=== PATIENT | male | born 1950 | race Caucasian/White ===

== ENCOUNTER 2017-11-11 19:46 | Observation (INO) | payer OTHER ==
[2017-11-11 20:53] LABS: Absolute Lymphocytes (CBC) 2.6 K/uL (0.7-4.9); Absolute Monocytes 0.7 K/uL (0.1-1.3); Absolute Neutrophil 4.9 K/uL (1.8-8.0); Basophils % 0.8 % (0-1.3); Eosinophils % 2.9 % (0-4.4); Lymphocytes % 30.4 % (15.3-44.8); MCH 30.9 pg (27.0-35.0); MCV 89.6 fL (80-100); MPV 8.3 fL (7.6-11.3); Monocytes % 8.2 % (3.3-12.3); RBC Red Blood Cell Count 4.46 M/uL (4.33-5.43)
[2017-11-11 20:58] LABS: Protime INR 1.07
[2017-11-11 21:08] LABS: Bilirubin Total 0.3 mg/dL (0.2-1.0); Potassium 3.9 mmol/L (3.5-5.1); Protein, Total 6.9 g/dL (6.4-8.2)
[2017-11-11] MEDS ORDERED: D50W 25 GM/50 ML SYRINGE IV PRN (21:16)
[2017-11-11] MEDS ORDERED: ONDANSETRON 4 MG/2 ML VIAL IV PRN (21:16)
[2017-11-11] MEDS ORDERED: ACETAMINOPHEN 500 MG TAB PO PRN (21:16)
[2017-11-11] MEDS ORDERED: GLUCAGON 1 MG/VIAL IM PRN (21:16)
[2017-11-11] MEDS ORDERED: Pharmacy Consult 1 EA IV PRN (21:16)
--- NOTE | 2017-11-11 21:23 | ER ---
Nurse's Notes [facility] Name: Grupo De La Rosa Age: 67 yrs Sex: Male : 1950 Arrival Date: 11/11/2017 Time: 19:49 Bed 24 Private MD: Noemi Tamayo F Diagnosis: Osteomyelitis-Right Foot Presentation: 11/11 19:52 Presenting complaint: Patient states: I have a diabetic foot wound and the MRI said its la1 gone to the bone the doctor told me I need to come in and get a picc line right away. Transition of care: patient was not received from another setting of care. Onset of symptoms was November 11, 2017. Risk Assessment: Do you want to hurt yourself or someone else? Patient reports no desire to harm self or others. Initial Sepsis Screen: Does the patient meet any 2 criteria? No. Patient's initial sepsis screen is negative. Does the patient have a suspected source of infection? Yes: Skin breakdown/wound. Care prior to arrival: None. 19:52 Method Of Arrival: Ambulatory la1 19:52 Acuity: TRIXIE 3 la1 Historical: - Allergies: 19:52 PENICILLINS; la1 19:52 Uqjtlfk-Ipg-Rcs Reductase Inhibitors; la1 - PMHx: 19:52 Diabetes - IDDM; CHF; la1 - PSHx: 19:[address]; Left BKA; Skin Grafts; la1 - Immunization history:: Adult Immunizations up to date. - Social history:: Smoking status: Patient/guardian denies using tobacco. - Ebola Screening: : No symptoms or risks identified at this time. Screenin:10 Abuse screen: Denies threats or abuse. Denies injuries from another. Nutritional mg2 screening: No deficits noted. Tuberculosis screening: No symptoms or risk factors identified. Fall Risk Ambulatory Aid- Crutches/Cane/Walker (15 pts). Assessment: 20:10 General: Appears in no apparent distress. comfortable, Behavior is calm, cooperative. mg2 Pain: Denies pain. Neuro: Level of Consciousness is awake, alert, obeys commands, Oriented to person, place, time, situation. Cardiovascular: Capillary refill < 3 seconds Patient's skin is warm and dry. Respiratory: Airway is patent Respiratory effort is even, unlabored, Respiratory pattern is regular, symmetrical. GI: No signs and/or symptoms were reported involving the gastrointestinal system. : No signs and/or symptoms were reported regarding the genitourinary system. EENT: No signs and/or symptoms were reported regarding the EENT system. Derm: Skin has lesions on right foot. Musculoskeletal: Circulation, motion, and sensation intact. 22:33 Reassessment: Patient appears in no apparent distress at this time. Patient and/or mg2 family updated on plan of care and expected duration. Pain level reassessed. Patient is alert, oriented x 3, equal unlabored respirations, skin warm/dry/pink. Vital Signs: 19:50 BP 150 / 70; Pulse 71; Resp 16; Temp 97.2; Pulse Ox 98% on R/A; Weight 103.42 kg; la1 Height 6 ft. 0 in. (182.88 cm); 20:23 Pulse 70; mg2 21:25 BP 118 / 58; Pulse 71; Resp 18; Pulse Ox 100% on R/A; mg2 19:50 Body Mass Index 30.92 (103.42 kg, 182.88 cm) la1 20:23 distal tibial pulse by doppler mg2 ED Course: 19:49 Patient arrived in ED. ds1 19:50 Noemi Tamayo MD is Private Physician. ds1 19:52 Arm band placed on left wrist. la1 19:53 Triage completed. la1 19:58 Bo Bender PA is PHCP. cp 19:58 Bhumika Logan MD is Attending Physician. cp 20:03 Dc Turner, ANJANA is Primary Nurse. mg2 20:12 Patient has correct armband on for positive identification. Call light in reach. Side mg2 rails up X 1. Door closed. 20:12 No provider procedures requiring assistance completed. mg2 21:22 Noemi Tamayo MD is Hospitalizing Provider. cp 21:30 Inserted saline lock: 20 gauge in right antecubital area, using aseptic technique. mg2 Blood collected. 22:33 Patient admitted, IV remains in place. mg2 Administered Medications: 21:45 Drug: Insulin Regular Human 7 units {Co-Signature: aa1 (Mariana Khalil RN).} Route: IVP; mg2 Site: right antecubital; 22:30 Follow up: Response: No adverse reaction mg2 21:47 Drug: LevaQUIN 750 mg Volume: 150 ml; Route: IVPB; Infused Over: 90 mins; Site: right mg2 antecubital; 22:30 Follow up: IV Status: Infusion continued upon transfer mg2 22:30 Not Given (to be given in the floor): vancoMYCIN 1 grams IVPB once over 2 hrs mg2 Point of Care Testing: Blood Glucose: 21:47 Blood Glucose: 257 mg/dL; mg2 Ranges: Outcome: 21:23 Decision to Hospitalize by Provider. cp 22:33 Admitted to Tele accompanied by tech, via wheelchair, room 428, with chart, Report mg2 called to RN Cecilia 22:33 Condition: stable 22:33 Instructed on the need for admit, Demonstrated understanding of instructions. 22:34 Patient left the ED. mg2 Signatures: Gudelia Blankenship ds1 Rene Amador RN RN la1 Bo Bender PA PA cp Dc Turner, RN RN mg2 Mariana Khalil RN aa1
--- NOTE | 2017-11-11 21:23 | EDPHYS ---
Physician Documentation [facility] Name: Grupo De La Rosa Age: 67 yrs Sex: Male : 1950 Arrival Date: 11/11/2017 Time: 19:49 Bed 24 Private MD: Noemi Tamayo F ED Physician Bhumika Logan HPI: 11/11 20:20 This 67 yrs old Male presents to ER via Ambulatory with complaints of Failed cp Outpatient Therapy. 20:20 The patient presents with chronic wound. cp Historical: - Allergies: 19:52 PENICILLINS; la1 19:52 Zuxrstb-Uue-Kit Reductase Inhibitors; la1 - PMHx: 19:52 Diabetes - IDDM; CHF; la1 - PSHx: 19:[address]; Left BKA; Skin Grafts; la1 - Immunization history:: Adult Immunizations up to date. - Social history:: Smoking status: Patient/guardian denies using tobacco. - Ebola Screening: : No symptoms or risks identified at this time. ROS: 20:30 Constitutional: Negative for body aches, chills, fever, poor PO intake. cp 20:30 Eyes: Negative for injury, pain, redness, and discharge. cp 20:30 ENT: Negative for drainage from ear(s), ear pain, sore throat, difficulty swallowing, difficulty handling secretions. 20:30 Cardiovascular: Negative for chest pain, edema, palpitations. 20:30 Respiratory: Negative for cough, shortness of breath, wheezing. 20:30 Abdomen/GI: Negative for abdominal pain, nausea, vomiting, and diarrhea, constipation, black/tarry stool, rectal bleeding. 20:30 Back: Negative for pain at rest, pain with movement. 20:30 MS/extremity: Positive for of the right foot, chronic wound. 20:30 Neuro: Negative for altered mental status, dizziness, headache, weakness. 20:30 All other systems are negative. Exam: 20:35 Constitutional: The patient appears in no acute distress, alert, awake, cp non-diaphoretic, non-toxic, well developed, well nourished. 20:35 Head/Face: Normocephalic, atraumatic. cp 20:35 Eyes: Periorbital structures: appear normal, Conjunctiva: normal, no exudate, no injection, Sclera: no appreciated abnormality, Lids and lashes: appear normal, bilaterally. 20:35 ENT: External ear(s): are unremarkable, Nose: is normal, Mouth: Lips: moist, Oral mucosa: pink and intact, moist, Posterior pharynx: is normal, airway is patent, no erythema, no exudate, Voice: is normal. 20:35 Neck: ROM/movement: is normal, is supple, without pain, no range of motions limitations, no nuchal rigidity. 20:35 Chest/axilla: Inspection: normal, Palpation: is normal, no crepitus, no tenderness. 20:35 Cardiovascular: Rate: normal, Rhythm: regular, Edema: is not appreciated. 20:35 Respiratory: the patient does not display signs of respiratory distress, Respirations: normal, no use of accessory muscles, no retractions, no splinting, no tachypnea, labored breathing, is not present, Breath sounds: are clear throughout, no decreased breath sounds, no stridor, no wheezing. 20:35 Abdomen/GI: Inspection: abdomen appears normal, Bowel sounds: active, all quadrants, Palpation: abdomen is soft and non-tender, in all quadrants, rebound tenderness, is not appreciated, involuntary guarding, is not appreciated. 20:35 Back: pain, is absent, ROM is normal. 20:35 Musculoskeletal/extremity: left BKA noted. 20:35 Skin: open wound noted lateral aspect right distal foot with purulent drainage, minimal erythema, minimal swelling. 20:42 ECG was reviewed by the Attending Physician. cp Vital Signs: 19:50 BP 150 / 70; Pulse 71; Resp 16; Temp 97.2; Pulse Ox 98% on R/A; Weight 103.42 kg; la1 Height 6 ft. 0 in. (182.88 cm); 20:23 Pulse 70; mg2 21:25 BP 118 / 58; Pulse 71; Resp 18; Pulse Ox 100% on R/A; mg2 19:50 Body Mass Index 30.92 (103.42 kg, 182.88 cm) la1 20:23 distal tibial pulse by doppler mg2 MDM: 19:59 Patient medically screened. cp 21:12 Data reviewed: vital signs, nurses notes, old medical records, lab test result(s), EKG, cp and as a result, I will admit patient. 21:12 Counseling: I had a detailed discussion with the patient and/or guardian regarding: the cp historical points, exam findings, and any diagnostic results supporting the discharge/admit diagnosis, lab results. Physician consultation: Noemi Tamayo MD was called at 21:00, was contacted at 21:00, regarding admission, to the medical/surgical unit. patient's condition. 11/11 20:18 Order name: CBC with Diff; Complete Time: 21:09 11/11 21:10 Interpretation: Reviewed. 11/11 20:18 Order name: CMP; Complete Time: 21: 11/11 21:10 Interpretation: Normal except: NA 135; GLUC 314; BUN 22; GFR 60; ALT 10; ALB 3.0. 11/11 20:18 Order name: PT-INR; Complete Time: 21: 11/11 20:18 Order name: Ptt, Activated; Complete Time: 21: 11/11 21:22 Order name: Basic Metabolic Panel EDMD 11/11 21:22 Order name: Basic Metabolic Panel EDMD 11/11 20:18 Order name: EKG; Complete Time: 20:19 11/11 21:22 Order name: Social Service Consult EDMD 11/11 21:22 Order name: CBC with Automated Diff EDMD 11/11 21:22 Order name: CBC with Automated Diff EDMD 11/11 21:48 Order name: Blood Culture [place] (2[place] [facility] [place]11 20:18 Order name: EKG - Nurse/Tech; Complete Time: 21:01 11/11 20:18 Order name: Urine Dipstick-Ancillary (obtain specimen); Complete Time: 21:01 11/11 21:22 Order name: Consistent Carb (ADA) 1800 Aron EDMS EC:42 Rate is 68 beats/min. Rhythm is regular. OK interval is normal. QRS interval is cp prolonged at 132 msec. QT interval is normal. Interpreted by me. Reviewed by me. Administered Medications: 21:45 Drug: Insulin Regular Human 7 units {Co-Signature: aa1 (Mariana Khalil RN).} Route: IVP; mg2 Site: right antecubital; 22:30 Follow up: Response: No adverse reaction mg2 21:47 Drug: LevaQUIN 750 mg Volume: 150 ml; Route: IVPB; Infused Over: 90 mins; Site: right mg2 antecubital; 22:30 Follow up: IV Status: Infusion continued upon transfer mg2 22:30 Not Given (to be given in the floor): vancoMYCIN 1 grams IVPB once over 2 hrs mg2 Point of Care Testing: Blood Glucose: 21:47 Blood Glucose: 257 mg/dL; mg2 Ranges: Critical Glucose Levels:Adult <50 mg/dl or >400 mg/dl <40 mg/dl or >180 mg/dl Disposition: 11/12 01:10 Co-signature as Attending Physician, Bhumika Logan MD. ak2 Disposition: 11/11/17 21:23 Hospitalization ordered by Noemi Tamayo for Observation. Preliminary diagnosis is Osteomyelitis - Right Foot. - Bed requested for Telemetry/MedSurg (observation). - Status is Observation. mg2 - Condition is Stable. - Problem is an ongoing problem. - Symptoms are unchanged. UTI on Admission? No Signatures: Dispatcher [employer] EDMS Diane Merritt RN RN Rene Amador RN RN la1 Bo Bender PA PA Bhumika Richards MD MD ma2 Dc Turner RN RN mg2 Mariana Khalil RN aa1 Corrections: (The following items were deleted from the chart) 11/11 21:25 21:23 Hospitalization Ordered by Noemi Tamayo MD for Observation. Preliminary kl diagnosis is Osteomyelitis - Right Foot. Bed requested for Telemetry/MedSurg (observation). Status is Observation. Condition is Stable. Problem is an ongoing problem. Symptoms are unchanged. UTI on Admission? No. cp 22:34 21:25 11/11/2017 21:23 Hospitalization Ordered by Noemi Tamayo MD for Observation. mg2 Preliminary diagnosis is Osteomyelitis - Right Foot. Bed requested for Telemetry/MedSurg (observation). Status is Observation. Condition is Stable. Problem is an ongoing problem. Symptoms are unchanged. UTI on Admission? No. kl
[2017-11-11] MEDS ORDERED: Levofloxacin 750mg IV 750 MG/150 ML BAG IV ONE (21:36)
[2017-11-11] MEDS ORDERED: VANCOMYCIN 1 GM/250 ML BAG ONE (22:34)
[2017-11-11] MEDS ORDERED: VANCOMYCIN 2.5 GM in NA CHLORIDE 0.9% 500 ML IVPB ONE (23:00)
[2017-11-11 23:42] VITALS: BMI 30.9
[2017-11-12] MEDS ORDERED: VANCOMYCIN 1.5 GM in NA CHLORIDE 0.9% 500 ML IVPB ONE (02:00)
[2017-11-12] MEDS ORDERED: VANCOMYCIN 500 MG/VIAL ONE (02:48)
[2017-11-12] MEDS ORDERED: NA CHLORIDE 0.9% 500 ML ONE (02:51)
[2017-11-12] MEDS ORDERED: VANCOMYCIN 1 GM/VIAL ONE (02:55)
[2017-11-12 05:22] LABS: Absolute Lymphocytes (CBC) 2.2 K/uL (0.7-4.9); Absolute Monocytes 0.7 K/uL (0.1-1.3); Absolute Neutrophil 4.4 K/uL (1.8-8.0); Basophils % 0.9 % (0-1.3); Eosinophils % 2.9 % (0-4.4); Hematocrit 38.1 % (39.6-49.0); Lymphocytes % 29.3 % (15.3-44.8); MCH 30.8 pg (27.0-35.0); MCV 89.2 fL (80-100); MPV 7.9 fL (7.6-11.3); RBC Red Blood Cell Count 4.28 M/uL (4.33-5.43)
[2017-11-12 05:36] LABS: Potassium 3.7 mmol/L (3.5-5.1)
[2017-11-12] MEDS: INSULIN -REGULAR HUMAN 50 UNIT/0.5 ML ML SQ SCH ×4 (07:30→21:15)
[2017-11-12 07:55] LABS: Urine Appearance CLEAR; Urine Bilirubin NEGATIVE (NEG); Urine Blood NEGATIVE (NEG); Urine Color YELLOW; Urine Glucose NEGATIVE (NEG); Urine Protein NEGATIVE (NEG); Urine Specific Gravity 1.015 (1.005-1.030)
[2017-11-12 07:56] LABS: Urine Urobilinogen 0.2 mg/dL (0.2-1.0)
[2017-11-12 07:58] LABS: Urine Microscopic Reflex NO UMIC
[2017-11-12] MEDS ORDERED: INFLUENZA VACCINE (for 3y+) 0.5 ML DOSE IMVAC ONE (08:00)
--- NOTE | 2017-11-12 08:15 | RAD REPORT ---
EXAM DESCRIPTION: RAD - Chest Single View - 11/12/2017 1:41 am CLINICAL HISTORY: PICC insertion COMPARISON: Chest Pa And Lat (2 Views) dated 01/30/2017; CHEST SINGLE VIEW dated 06/23/2014; CHEST SIN GLE VIEW dated 06/09/2014; CHEST SINGLE VIEW dated 12/10/2013 FINDINGS: Portable chest was obtained following placement of a right upper extremity PICC line. The catheter tip projects over the SVC..
[2017-11-12] MEDS: COLLAGENASE 30 GM OINTMENT TOP SCH (10:00)
[2017-11-12] MEDS ORDERED: METOLAZONE 5 MG TABLET PO PRN (13:07)
--- NOTE | 2017-11-12 13:31 | EKG ---
Test Date: 2017-11-11 Test Time: 20:36:56 Missile Technician: MEASUREMENT RESULTS: Intervals: Rate: 68 WI: 178 QRSD: 132 QT: 438 QTc: 465 [place]: P: 42 WI: 178 QRS: -57 T: 74 INTERPRETIVE STATEMENTS: Sinus rhythm with premature atrial complexes Left axis deviation Right bundle branch block Minimal voltage criteria for LVH, may be normal variant Inferior infarct, age undetermined Anterolateral infarct, age undetermined Abnormal ECG Compared to ECG 07/06/2014 09:00:20 Atrial premature complex(es) now present Sinus bradycardia no longer present Ventricular premature complex(es) no longer present Electronically Signed On 11-12-17 13:31:25 CDT by Colten Brannon
--- NOTE | 2017-11-12 13:43 | CON ---
Date of Consultation: 11/11/2017 Reason: Osteo and a nonhealing wound, right foot. History Of Present Illness: The patient is a 67-year-old gentleman, who was diagnosed last week with osteomyelitis and a PICC line and vancomycin was ordered, however, due to the limitations of his [employer], the patient was not able to get in a timely fashion the care he needed, therefore, I advised the patient to show up to the emergency room, so he could be admitted for a PICC line, IV ant ibiotics, and discharge planning. He is awake, alert. No fever or chills. No purulent discharge. He had a vascular procedure on his right leg recently to improve the blood flow; however, subsequent to that the patient developed osteomyelitis. Cultures were done, and the patient was started on oral antibiotics last week. However, he requires IV antibiotics. No sore throat, runny nose, cough, hea daches, dizziness, or chest pain. Review of Systems: Otherwise unremarkable. Past Medical History: Diabetes, peripheral vascular disease, CHF. Past Surgical History: Left BKA. Multiple skin grafts. CABG. Allergies: PENICILLIN AND STATINS. Social History: He does not smoke, does not drink. Family History: Noncontributory. Physical Examination: Vital Signs: Stable. He is afebrile. He is awake, alert, and oriented x3. Head and Neck: Cranial 2 through 12 grossly within normal limits. No neck masses. No JVD. Throat clear. Neck is supple. Chest: Clear. Heart: S1, S2. Abdomen: Soft. Extremity: Diminished dorsalis pedis and posterior tibial pulses on the right leg. Left BKA is well with a prosthesis. On the lateral aspect of the right foot, there is approximately a 3 x 1 cm wound with good granulation tissue. No purulent discharge. Mild erythema surrounding it. Laboratory Data: Admission white count was 8.5, mild. His MRI done earlier this month showed promin ent osteo involving the distal shaft of the 5th metatarsal as well as the proximal phalanx of the 5th toe. Assessment: Right foot wound. The patient with peripheral vascular disease and osteomyelitis. Recommendation: Collagenase dressing vancomycin, Levaquin. Discharge planning. Six weeks IV antibi otics. [facility] upon discharge. ADRIAN/LISBETH Voice ID: [id number] Report ID: [id number]
[2017-11-12] MEDS: EZETIMIBE 10 MG TAB PO SCH (13:48)
[2017-11-12] MEDS: CARVEDILOL 12.5 MG TAB PO SCH ×2 (13:49→21:16)
[2017-11-12] MEDS: LISINOPRIL 5 MG TAB PO SCH (13:49)
[2017-11-12] MEDS: PENTOXIFYLLINE ER 400 MG TAB PO SCH ×2 (13:49→21:16)
[2017-11-12] MEDS: FUROSEMIDE 40 MG TABLET PO SCH ×3 (13:49→21:16)
[2017-11-12] MEDS: ASPIRIN EC 81 MG TAB PO SCH (13:50)
[2017-11-12] MEDS: VANCOMYCIN 1.75 GM in NA CHLORIDE 0.9% 500 ML IVPB SCH ×2 (13:50→20:12)
[2017-11-12] MEDS ORDERED: VANCOMYCIN 1.75 GM in NA CHLORIDE 0.9% 500 ML IVPB SCH (17:00)
[2017-11-12] MEDS: DOCOSAHEXANOIC AC/EPA 1000 MG PO SCH ×2 (17:36→21:16)
[2017-11-12] MEDS: Levofloxacin500mg IV 500 MG/100 ML BAG IV SCH (21:15)
--- NOTE | 2017-11-13 01:24 | HP ---
Date of Admission: 11/11/2017 History Of Present Illness: A 67-year-old male with a history of type 2 diabetes. He has been havin g right little toe infection and cellulitis, and been following up with Dr. Pathak on that. He was di agnosed with osteomyelitis in that area, so we went ahead and admitted the patient for IV antibiotic with vancomycin, and a PICC line placement, and the patient had no complaint. Review of Systems: Cardiovascular: No complaint. Genitourinary: No complaint. Respiratory: No complaints. Gastrointestinal: No complaint. Skeletomuscular: As above. Past Medical History: 1.As above. 2.Type 2 diabetes with peripheral vascular disease. 3.Carotid disease. 4.History of congestive heart failure. 5.Gastroesophageal reflux disease. Social History: The patient has stopped smoking years ago. No alcohol or drug abuse history. Family History: Brother had diabetes. Positive for family history of coronary artery disease. Medications: Include Ecotrin 81 mg p.o. daily, Coreg 12.5 mg p.o. b.i.d., Zetia 10 mg p.o. daily, ir on sulfate 65 mg daily, Lasix 40 mg p.o. b.i.d., Levemir 60 units subcutaneous daily, lisinopril 5 mg p.o. daily, 5 mg p.o. p.r.n., Protonix 40 mg p.o. daily, pentoxifylline 400 mg p.o. b.i.d ., p.o. daily, zinc sulfate 220 mg p.o. daily. Allergies: PENICILLIN AND STATINS. Physical Examination: Vital Signs: Blood pressure 145/80, pulse 87, temperature 97.8. Heart: Regular rate and rhythm. Chest: Clear to auscultation. Abdomen: Soft, benign. Neurological Examination: Alert, oriented, nonfocal. Grossly intact. Extremities: The patient has left below-knee amputation on the right side, his right foot is dressed and no pitting edema. Laboratory Data: CBC: White cell count 7.6, hemoglobin 13.2, hematocrit 38.1, platelets 142. Chemi stry: BUN 19, creatinine 1.10, GFR 66. Blood sugar fingersticks 257, 151, and 197. Assessment And Plan: Osteomyelitis in the right foot. The patient is being admitted and put on IV v ancomycin and Levaquin, and collagenase dressing for his wound. Dr. Pathak consulted to put also PICC line. We will ask Lining Scrubber arrangement for home IV antibiotic therapy. Meanwhile, we will g o ahead and continue his home medicines for his chronic medical illnesses, and we will monitor his bl ood sugar fingersticks, and put him on regular insulin sliding scale. Look orders for details. AMELIA/LISBETH Voice ID: [id number]
--- NOTE | 2017-11-13 01:30 | HP ---
Date of Admission: 11/11/2017 Addendum: Addendum to admit note. The patient also had cultures taken from his wound along with blood cultures. Results are pending. AMELIA/LISBETH Voice ID: [id number]
[2017-11-13 06:14] LABS: Absolute Monocytes 0.6 K/uL (0.1-1.3); Absolute Neutrophil 4.8 K/uL (1.8-8.0); Basophils % 0.8 % (0-1.3); Eosinophils % 2.7 % (0-4.4); Hematocrit 39.8 % (39.6-49.0); Lymphocytes % 25.7 % (15.3-44.8); MCH 30.7 pg (27.0-35.0); MCV 89.8 fL (80-100); MPV 8.8 fL (7.6-11.3); RBC Red Blood Cell Count 4.43 M/uL (4.33-5.43)
[2017-11-13 06:42] LABS: Potassium 4.1 mmol/L (3.5-5.1)
[2017-11-13] MEDS: INSULIN -REGULAR HUMAN 50 UNIT/0.5 ML ML SQ SCH ×5 (07:30→20:58)
[2017-11-13] MEDS: ZINC SULFATE 220 MG CAP PO SCH ×2 (09:00→09:07)
[2017-11-13] MEDS: FUROSEMIDE 40 MG TABLET PO SCH ×2 (09:07→17:23)
[2017-11-13] MEDS: INSULIN GLARGINE 100 UNITS/ML SQ SCH (09:07)
[2017-11-13] MEDS: FERROUS GLUCONATE 300 MG TAB PO SCH (09:07)
[2017-11-13] MEDS: DOCOSAHEXANOIC AC/EPA 1000 MG PO SCH ×4 (09:07→20:58)
[2017-11-13] MEDS: PANTOPRAZOLE 40MG TABLET PO SCH (09:07)
[2017-11-13] MEDS: LISINOPRIL 5 MG TAB PO SCH (09:08)
[2017-11-13] MEDS: EZETIMIBE 10 MG TAB PO SCH (09:08)
[2017-11-13] MEDS: CARVEDILOL 12.5 MG TAB PO SCH ×2 (09:08→20:58)
[2017-11-13] MEDS: PENTOXIFYLLINE ER 400 MG TAB PO SCH ×2 (09:11→21:04)
[2017-11-13] MEDS: COLLAGENASE 30 GM OINTMENT TOP SCH (09:12)
[2017-11-13] MEDS: CHOLESTYRAMINE/ASP 4 GM/PKT PO SCH (11:45)
[2017-11-13] MEDS: VANCOMYCIN 1.75 GM in NA CHLORIDE 0.9% 500 ML IVPB SCH (14:52)
--- NOTE | 2017-11-13 16:06 | PN ---
Date of Progress Note: 11/13/2017 Subjective: The patient is awake, alert. No complaint. Objective: Vital Signs: Stable. Afebrile. Dressing is clean, dry, and intact. Assessment: Osteomyelitis, right foot with wound. Recommendation: Discharge planning in progress. Continue antibiotics and wound care as ordered. /MODL Voice ID: [id number] Report ID: [id number]
--- NOTE | 2017-11-13 16:45 | PN ---
Subjective: The patient is doing well. Has no new complaints. Objective: Vital Signs: Blood pressure 165/70, pulse 78, temperature 97.6. Heart: Regular rate and rhythm. Chest: Clear to auscultation. Abdomen: Soft, benign. Neurological: Alert, oriented. Grossly intact. Extremities: Right foot dressed. No pitting edema. Laboratory Data: Microbiology, no growth to date. CBC noted. Chemistry; BUN 29, creatinine 1.2, bl ood sugar fingersticks noted. Assessment And Plan: Osteomyelitis, right little toe. We will continue current antibiotics. Gunnar mitchell arrangements for home health for IV antibiotics. Meanwhile, we will continue monitoring his blood sugar and continue his home medicines. We will put the patient on Lovenox subcutaneous prophylaxis. Look orders for details. AMELIA/MODL Voice ID: [id number] Report ID: [id number]
[2017-11-13] MEDS: ENOXAPARIN 40 MG/0.4 ML SQ SCH (17:23)
[2017-11-13] MEDS: Levofloxacin500mg IV 500 MG/100 ML BAG IV SCH (20:57)
[2017-11-14 05:15] LABS: Absolute Lymphocytes (CBC) 2.2 K/uL (0.7-4.9); Absolute Monocytes 0.6 K/uL (0.1-1.3); Absolute Neutrophil 4.5 K/uL (1.8-8.0); Basophils % 0.6 % (0-1.3); Eosinophils % 4.2 % (0-4.4); Hematocrit 38.1 % (39.6-49.0); Lymphocytes % 28.4 % (15.3-44.8); MCH 30.9 pg (27.0-35.0); MCV 90.3 fL (80-100); MPV 8.4 fL (7.6-11.3); Monocytes % 8.2 % (3.3-12.3); RBC Red Blood Cell Count 4.22 M/uL (4.33-5.43)
[2017-11-14 05:44] LABS: Potassium 3.9 mmol/L (3.5-5.1)
[2017-11-14] MEDS: INSULIN -REGULAR HUMAN 50 UNIT/0.5 ML ML SQ SCH ×3 (07:30→16:30)
[2017-11-14] MEDS: ZINC SULFATE 220 MG CAP PO SCH (09:00)
[2017-11-14] MEDS: VANCOMYCIN 1.75 GM in NA CHLORIDE 0.9% 500 ML IVPB SCH (09:13)
[2017-11-14] MEDS: INSULIN GLARGINE 100 UNITS/ML SQ SCH (09:14)
[2017-11-14] MEDS: FERROUS GLUCONATE 300 MG TAB PO SCH (09:15)
[2017-11-14] MEDS: DOCOSAHEXANOIC AC/EPA 1000 MG PO SCH ×3 (09:15→17:33)
[2017-11-14] MEDS: FUROSEMIDE 40 MG TABLET PO SCH ×2 (09:15→17:33)
[2017-11-14] MEDS: LISINOPRIL 5 MG TAB PO SCH (09:15)
[2017-11-14] MEDS: PANTOPRAZOLE 40MG TABLET PO SCH (09:15)
[2017-11-14] MEDS: CARVEDILOL 12.5 MG TAB PO SCH (09:16)
[2017-11-14] MEDS: EZETIMIBE 10 MG TAB PO SCH (09:16)
[2017-11-14] MEDS: ASPIRIN EC 81 MG TAB PO SCH (09:16)
[2017-11-14] MEDS: PENTOXIFYLLINE ER 400 MG TAB PO SCH (09:18)
[2017-11-14] MEDS: COLLAGENASE 30 GM OINTMENT TOP SCH (09:18)
[2017-11-14] MEDS: CHOLESTYRAMINE/ASP 4 GM/PKT PO SCH (11:48)
--- NOTE | 2017-11-14 14:13 | PN ---
Date of Progress Note: 11/14/2017 Subjective: The patient is awake and alert. No complaint. Objective: Vital signs: Stable. Afebrile. Dressing is clean, dry, and intact. Assessment: Osteomyelitis and wound, right lower extremity with peripheral vascular disease. Recommendations: Continue IV antibiotics, and wound care is ordered. Awaiting discharge planning. /MODL Voice ID: [id number] Report ID: [id number]
[2017-11-14 16:54] VITALS: BP 136/65; TEMP 97
[2017-11-14] MEDS: ENOXAPARIN 40 MG/0.4 ML SQ SCH (17:34)
[2017-11-14 17:49] VITALS: O2SAT 98
== END 2017-11-14 18:30 | disposition home health service (06) ==
LOC: ER 19:46 → 4TH 21:14
PROVIDERS: ADMIT Internal Medicine; ATTEND Internal Medicine
PROC: 02HV33Z Insertion of Infusion Device into Superior Vena Cava, Percutaneous Approach (ICD-10-PCS; principal; 2017-11-12)
DX: M86.8X7 Other osteomyelitis, ankle and foot (principal); E11.69 Type 2 diabetes mellitus with other specified complication; E11.51 Type 2 diabetes mellitus with diabetic peripheral angiopathy without gangrene; K21.9 Gastro-esophageal reflux disease without esophagitis; I50.9 Heart failure, unspecified; Z23 Encounter for immunization; Z89.512 Acquired absence of left leg below knee; Z88.0 Allergy status to penicillin
CPT/HCPCS: 36415 ×3; 36569; 71045; 80048 ×3; 80053; 80202; 81003; 82962 ×12; 85025 ×4; 85610; 85730; 87040 ×3; 87070; 87205; 93005; 96365; 96375; 99285; G0008; G0378 ×2; J1650; J3370; Q2035; J3590

== ENCOUNTER 2018-07-23 06:16 | Day surgery (SDC) | payer OTHER ==
--- NOTE | 2018-07-21 13:44 | RAD REPORT ---
EXAM DESCRIPTION: Elaine Rios And Lat (2 Views)07/21/2018 1:34 pm CLINICAL HISTORY: Preop cardiac catheterization COMPARISON: October 2017 FINDINGS: Left base is hazy. Lungs appear clear of acute infiltrate. Heart is mildly to moderately enlarged. Postsurgical changes involve the chest IMPRESSION: The left base is hazy which could be secondary to pleural effusion or thickening
[2018-07-21 13:56] LABS: Absolute Lymphocytes (CBC) 2.4 K/uL (0.7-4.9); Absolute Monocytes 0.7 K/uL (0.1-1.3); Absolute Neutrophil 5.8 K/uL (1.8-8.0); Basophils % 0.8 % (0-1.3); Eosinophils % 1.4 % (0-4.4); Lymphocytes % 26.5 % (15.3-44.8); MPV 8.4 fL (7.6-11.3); Monocytes % 7.8 % (3.3-12.3); RBC Red Blood Cell Count 5.14 M/uL (4.33-5.43)
[2018-07-21 14:06] LABS: Protime INR 1.16
[2018-07-21 14:10] LABS: Potassium 4.1 mmol/L (3.5-5.1)
--- NOTE | 2018-07-22 07:43 | EKG ---
Test Date: 2018-07-21 Test Time: 12:54:33 Traffic And Transport Planner: TERRA MEASUREMENT RESULTS: Intervals: Rate: 141 [place]: 100 QRSD: 144 QT: 298 QTc: 456 [employer]: P: 64 KS: 100 QRS: -75 T: 70 INTERPRETIVE STATEMENTS: Atrial flutter with 2 to 1 conduction Left axis deviation Right bundle branch block Inferior infarct, age undetermined Anterolateral infarct, age undetermined Abnormal ECG Compared to ECG 11/11/2017 20:36:56 Sinus rhythm no longer present Left ventricular hypertrophy no longer present Myocardial infarct finding still present Electronically Signed On 07-22-18 07:42:14 CDT by Colten Brannon
--- OUTSIDE RECORDS SUMMARY | 2018-07-23 06:31 | XMS REPORT | Continuity of Care Document ---
:1950 Author Organization Interface Problems Problem Status Onset Classification Date Comments Source Date Reported ABD PAIN Active 04/10/19 [facility] 19 [place] RIGHT LOWER LOBE Active 04/10/19 [facility] PNEUMONIA 19 [place] ACUTE Active 04/05/19 [facility] EXACERBATION OF 19 [place] CHF-- CONGESTIVE H BREATHING, SEVERE Active 04/05/19 [facility] COUGH 19 [place] COPD Active 03/31/19 [facility] 13 786.50 Active 09/25/19 [facility] 12 UNK Active 09/25/19 [facility] 12 DX:EMPYEMA Active 09/03/19 [facility] 12 LEFT BASILAR Active 07/18/19 [facility] PNEUMONIA 12 COUGHING UP BLOOD Active 07/18/19 [facility] 12 SYNCOPE, ANEMIA Active 05/12/19 [facility] 12 CABG - Coronary Active Problem 04/08/2012 [facility] artery bypass graft Diabetes mellitus Active Problem 04/08/2012 [facility] Gastric reflux Active Problem 04/08/2012 [facility] Hepatitis Active Problem 04/08/2012 [facility] Hyperlipidemia Active Problem 04/08/2012 [facility] Hypertension Active Problem 04/08/2012 [facility] Multiple ulcers Active Problem 04/08/2012 [facility] Empyema Active Problem 04/08/2012 [facility] Maintenance of Active Problem 04/08/2012 [facility] chest tube Pneumonia Active Problem 04/08/2012 [facility] Heart failure, 04/11/[address] [facility] unspecified CABG - Coronary Active Problem 04/16/[address] [facility] artery bypass graft Diabetes mellitus Active Problem 04/16/[address] [facility] Empyema Active Problem 04/16/[address] [facility] Gastric reflux Active Problem 04/16/[address] [facility] Hepatitis Active Problem 04/16/[address] [facility] Hyperlipidemia Active Problem 04/16/[address] [facility] Hypertension Active Problem 04/16/[address] [facility] Maintenance of Active Problem 04/16/[address] [facility] chest tube Pneumonia Active Problem 04/16/[address] [facility] EMPYEMA W/O Active [facility] FISTULA PNEUMONIA, Active [facility] ORGANISM NOS SYNCOPE AND Active [facility] COLLAPSE ANEMIA NOS Active [facility] CHEST PAIN NOS Active [facility] HEART FAILURE, Active [facility] UNSPECIFIED [place] PLEURAL EFFUSION Active [facility] NOS LOBAR PNEUMONIA, Active [facility] UNSPECIFIED [place] ORGANISM Medications Medication Details Route Status Patient Ordering Order Source Instructions Provider Date Furosemide 40 MG 40 mg, 1 No Longer Oral Tablet tab, Route: Active 2018 [place] PO, Drug form: TAB, Daily, Dosing Weight 90, kg, Start date: 04/14/18 9:00:00 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, Duration: 30 day, Stop date: 05/13/18 9:00:00 CDTNotes: (Same as: Lasix) May cause GI upset. Give with food or milk. Azithromycin 5 250 mg=1 Active Day Dose Pack tab, PO, 2019 [place] 250 mg oral [id number], X 4 tablet day, # 4 tab, 0 Refill(s), Pharmacy: [place] [id number] Furosemide 40 MG 40 mg=1 tab, Active Oral Tablet PO, Daily, # 2019 [place] 30 tab, 0 Refill(s), Pharmacy: [place] [id number] Azithromycin 5 250 mg, 1 Inactive Day Dose Pack tab, Route: 2019 [place] 250 mg oral PO, Drug tablet form: TAB, [id number], Dosing Weight 100.909, kg, Start date: 04/13/18 9:00:00 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, Duration: 4 day, Stop date: 04/16/18 9:00:00 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, ABX Indication: PneumoniaNot es: Take 1 hour before or 2 hours after meals. (Same As: Zithromax) Lactated Ringers 1,000 mL, No Longer (titrate) IV Rate: 50 Active 2018 [place] 1,000 mL ml/hourTitra te, Dosing Weight 100.909, kg, Route: IV, Total Volume: 1,000, Start Date: 04/12/18 10:43:00 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, Duration: 30 day, Stop date: 05/12/18 10:42:00 CDT, Replace Every: 24 hr Azithromycin 5 500 mg, 2 Inactive Day Dose Pack tab, Route: 2019 [place] 250 mg oral PO, Drug tablet form: TAB, ONCE, Dosing Weight 100.909, kg, Start date: 04/12/18 9:58:00 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, Stop date: 04/12/18 9:58:00 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, ABX Indication: PneumoniaNot es: Take 1 hour before or 2 hours after meals. (Same As: Zithromax) Lantus 100 60 unit, 0.6 No Longer units/mL mL, Route: Active 2019 [place] SUB-Q, Drug form: SOLN, Bedtime, Start date: 04/11/18 21:00:00 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, Duration: 30 day, Stop date: 05/10/18 21:00:00 CDTNotes: (Same as: Lantus) Do not hold insulin without contacting prescriber WASTE: F/P - Black; E - Municipal Trash Bin "single patient use only" Levemir 60 unit, No Longer Route: Active 2019 [place] SUB-Q, Bedtime, Dosing Weight 90, kg, Start date: 04/11/18 21:00:00 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, Duration: 30 day, Stop date: 05/10/18 21:00:00 CDT Zetia 10 mg, 1 No Longer tab, Route: Active 2019 [place] PO, Drug form: TAB, QPM, Dosing Weight 90, kg, Start date: 04/11/18 17:00:00 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, Duration: 30 day, Stop date: 05/10/18 17:00:00 CDTNotes: (Same as: Zetia) Albuterol 0.833 3 ml, Route: No Longer MG/ML / NEB, Drug Active 2019 [place] Ipratropium Form: SOLN, [place] 0.167 Dosing MG/ML Inhalant Weight Solution 100.909, kg, [DuoNeb] RQ6H, Start date: 04/11/18 14:00:00 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, Duration: 30 day, Stop date: 05/11/18 8:00:00 CDTNotes: (Same as: Duoneb) omega-3 1,000 mg, 1 No Longer polyunsaturated cap, Route: Active 2019 [place] fatty acids PO, Drug form: CAP, BID, Dosing Weight 90, kg, Start date: 04/11/18 9:00:00 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, Duration: 30 day, Stop date: 05/10/18 17:00:00 CDTNotes: (Same as: Lovaza, formally named [place]) "Do Not Crush" Protonix 40 mg, 1 No Longer tab, Route: Active 2019 [place] PO, Drug form: ECTAB, Daily, Dosing Weight 90, kg, Start date: 04/11/18 9:00:00 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, Duration: 30 day, Stop date: 05/10/18 9:00:00 CDTNotes: Tablet should not be chewed or crushed. (Same as: Protonix) Pentoxifylline 400 mg, 1 No Longer tab, Route: Active 2019 [place] PO, Drug form: ERTAB, BID, Dosing Weight 90, kg, Start date: 04/11/18 9:00:00 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, Duration: 30 day, Stop date: 05/10/18 17:00:00 CDTNotes: Non-Formular y Drug. Do not crush or chew. (Same as: Trental) 24 HR Metoprolol 100 mg, 2 No Longer Tartrate 100 MG tab, Route: Active 2019 [place] Extended Release PO, Drug Tablet [Toprol] form: ERTAB, Daily, Start date: 04/11/18 9:00:00 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, Duration: 30 day, Stop date: 05/10/18 9:00:00 CDTNotes: (Same as: Toprol XL) May split tab, but do not crush. Lisinopril 5 mg, 1 tab, No Longer Route: PO, Active 2018 [place] Drug form: TAB, Daily, Dosing Weight 90, kg, Start date: 04/11/18 9:00:00 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, Duration: 30 day, Stop date: 05/10/18 9:00:00 CDTNotes: (Same as: Prinivil, Zestril) cefepime 1 gm, Route: No Longer IVPB, Active 2018 [place] [id number], Dosing Weight 90, kg, (CrCl 30 - 49 ml/min), Start date: 04/11/18 9:00:00 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, Duration: 3 day, Stop date: 04/13/18 21:00:00 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, ABX Indication: PneumoniaNot es: (Same As: Maxipime) MEDICATION WASTE Product Size: 1000 mg Product Wasted: ___ mg Furosemide 40 MG 40 mg, 1 No Longer Oral Tablet tab, Route: Active 2018 [place] PO, Drug form: TAB, BID, Dosing Weight 90, kg, Start date: 04/11/18 9:00:00 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, Duration: 30 day, Stop date: 05/10/18 17:00:00 CDTNotes: (Same as: Lasix) May cause GI upset. Give with food or milk. Aspirin 81 mg, 1 No Longer tab, Route: Active 2019 [place] PO, Drug form: CHEWTAB, Daily, Dosing Weight 90, kg, Start date: 04/11/18 9:00:00 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, Duration: 30 day, Stop date: 05/10/18 9:00:00 CDTNotes: Take with food. Eliquis 2.5 mg, 1 No Longer tab, Route: Active 2018 [place] PO, Drug form: TAB, Q12H, Dosing Weight 90, kg, Start date: 04/11/18 9:00:00 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, Duration: 30 day, Stop date: 05/10/18 21:00:00 CDTNotes: Same as: Eliquis insulin glargine 45 unit, No Longer 0.45 mL, Active 2018 [place] Route: SUB-Q, Drug form: SOLN, ONCE, Start date: 04/10/18 23:00:00 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, Stop date: 04/10/18 23:00:00 CSTNotes: (Same as: Lantus) Do not hold insulin without contacting prescriber WASTE: F/P - Black; E - Municipal Trash Bin "single patient use only" Levemir 45 unit, Inactive Route: 2018 [place] SUB-Q, ONCE, Dosing Weight 90, kg, Start date: 04/10/18 22:35:00 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, Stop date: 04/10/18 22:35:00 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 Insulin Lispro 5 unit, 0.05 No Longer mL, Route: Active 2018 [place] SUB-Q, Drug form: SOLN, TID-Before Meals, Dosing Weight 90, kg, PRN Blood Glucose Results, Start date: 04/10/18 22:33:00 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, Duration: 30 day, Stop date: 05/10/18 22:32:00 CDTNotes: (Same as: Humalog ) Roll in palms of hands gently; Do not shake `vigorously. "Single Patient Use Only " WASTE: F/P - Black; E - Municipal Trash Bin Stable for 28 days at room temperature. Expires in days from __Date Glucagon 1 mg, Route: No Longer IM, Drug Active 2019 [place] form: PDR/INJ, PRN, Dosing Weight 90, kg, PRN Blood Glucose Results, Start date: 04/10/18 22:33:00 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, Duration: 30 day, Stop date: 05/10/18 23:32:00 CDT Dextrose 50% 25 gm, 50 No Longer Syringe mL, Route: Active 2019 [place] IVP, Drug Form: INJ, Dosing Weight 90, kg, PRN, PRN Blood Glucose Results, Start date: 04/10/18 22:33:00 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, Duration: 30 day, Stop date: 05/10/18 23:32:00 CDT Morphine 2 mg, 1 mL, No Longer Route: IVP, Active 2018 [place] Drug form: SOLN, Q4H, Dosing Weight 90, kg, PRN Pain Score 7-10, Start date: 04/10/18 22:30:00 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, Duration: 30 day, Stop date: 05/10/18 22:29:00 CDT Acetaminophen 1 tab, No Longer 325 MG / Route: PO, Active 2019 [place] Hydrocodone Drug Form: Bitartrate 5 MG TAB, Dosing Oral Tablet Weight 90, [Williams 5/325] kg, Q6H, PRN Pain Score 4-6, Start date: 04/10/18 22:30:00 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, Duration: 30 day, Stop date: 05/10/18 22:29:00 CDTNotes: (Same as: Williams 325/5) Do not exceed 4gm/day of acetaminophe n. Melatonin 3 mg, 1 tab, No Longer Route: PO, Active 2019 [place] Drug form: TAB, Bedtime, Dosing Weight 90, kg, PRN Insomnia, Start date: 04/10/18 22:27:00 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, Duration: 30 day, Stop date: 05/10/18 22:26:00 CDTNotes: (Same as: Melatonin) Ondansetron 4 mg, 2 mL, No Longer Route: IVP, Active 2019 [place] Drug form: INJ, Q8H, Dosing Weight 90, kg, PRN Nausea & Vomiting, Start date: 04/10/18 22:27:00 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, Duration: 30 day, Stop date: 05/10/18 22:26:00 CDTNotes: (Same as: Zofran) MEDICATION WASTE Product Size: 4 mg Product Wasted: ___ mg Bisacodyl 10 mg, 1 No Longer supp, Route: Active 2019 [place], Drug form: SUPP, Daily, Dosing Weight 90, kg, PRN Constipation , Start date: 04/10/18 22:27:00 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, Duration: 30 day, Stop date: 05/10/18 22:26:00 CDTNotes: (Same As: Dulcolax, [place]-Lax) Acetaminophen 650 mg, 2 No Longer tab, Route: Active 2019 [place] PO, Drug form: TAB, Q4H, Dosing Weight 90, kg, PRN For Temp > 100.4 F, Start date: 04/10/18 22:27:00 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, Duration: 30 day, Stop date: 05/10/18 22:26:00 CDTNotes: Do not exceed 4 gm/day. (Same as: Tylenol) Dextrose 50% 25 gm, 50 Inactive Syringe mL, Route: 2019 [place] IVP, Drug Form: INJ, Dosing Weight 90, kg, PRN, PRN Blood Glucose Results, Start date: 04/10/18 22:27:00 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, Duration: 30 day, Stop date: 05/10/18 23:26:00 CDT Glucagon 1 mg, Route: Inactive IM, Drug 2019 [place] form: PDR/INJ, PRN, Dosing Weight 90, kg, PRN Blood Glucose Results, Start date: 04/10/18 22:27:00 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, Duration: 30 day, Stop date: 05/10/18 23:26:00 CDT Guaifenesin 200 mg, 10 No Longer mL, Route: Active 2018 [place] PO, Drug form: LIQ, Q4H, Dosing Weight 90, kg, PRN Cough, Start date: 04/10/18 22:27:00 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, Duration: 30 day, Stop date: 05/10/18 22:26:00 CDTNotes: (Same as: Charbelitussin) Ceftriaxone 1 gm, Route: Inactive IVPB, 2018 [place] [id number], Dosing Weight 90, kg, Priority: NOW, Start date: 04/10/18 22:27:00 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, Duration: 5 day, Stop date: 04/14/18 22:27:00 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, ABX Indication: Pneumonia Azithromycin 500 mg, Inactive Route: IVPB, 2018 [place] [id number], Dosing Weight 90, kg, Priority: NOW, Start date: 04/10/18 22:27:00 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, Duration: 5 day, Stop date: 04/14/18 22:27:00 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, ABX Indication: Pneumonia cefepime 1 gm, Route: Inactive IVPB, ONCE, 2018 [place] Dosing Weight 90, kg, Priority: STAT, Start date: 04/10/18 20:41:00 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, Stop date: 04/10/18 20:41:00 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, ABX Indication: PneumoniaNot es: (Same As: Maxipime) MEDICATION WASTE Product Size: 1000 mg Product Wasted: ___ mg Zofran 4 mg, 2 mL, Inactive Route: IVP, 2018 [place] Drug form: INJ, ONCE, Dosing Weight 97.869, kg, Priority: STAT, Start date: 04/10/18 19:22:00 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, Stop date: 04/10/18 19:22:00 CSTNotes: (Same as: Zofran) MEDICATION WASTE Product Size: 4 mg Product Wasted: ___ mg Eliquis 2.5 mg, Inactive Route: PO, 2018 [place] Drug form: TAB, Q12H, Dosing Weight 97.869, kg, Start date: 04/08/18 21:00:00 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, Duration: 30 day, Stop date: 05/08/18 9:00:00 CDT Eliquis 2.5 mg, 1 Inactive tab, Route: 2019 [place] PO, Drug form: TAB, Q12H, Dosing Weight 97.869, kg, Priority: NOW, Start date: 04/08/18 15:56:00 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, Duration: 30 day, Stop date: 05/08/18 9:00:00 CDTNotes: Same as: Eliquis metoprolol 100 mg=1 Active succinate 100 mg cap, PO, 2019 [place] oral capsule, Daily, # 30 extended release cap, 4 Refill(s), Pharmacy: [place] [id number] apixaban 2.5 MG 2.5 mg, PO, Active Oral Tablet Q12H, # 60 2019 [place] [Eliquis] tab, 4 Refill(s), Pharmacy: [place] [id number] metoprolol 100 mg, 2 Inactive extended release tab, Route: 2018 [place] PO, Drug form: ERTAB, Daily, Start date: 04/08/18 9:00:00 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, Duration: 30 day, Stop date: 05/07/18 9:00:00 CDTNotes: (Same as: Toprol XL) May split tab, but do not crush. potassium 40 mEq, 2 Inactive chloride 20 mEq tab, Route: 2018 [place] oral tablet, PO, Drug extended release form: ERTAB, ONCE, Dosing Weight 97.869, kg, Start date: 04/08/18 7:45:00 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, Stop date: 04/08/18 7:45:00 CSTNotes: (Same as: K-Dur 20) "Do Not Crush" Give with food and full glass of water For patients unable to swallow tablet, dissolve in one half glass of water. Allow about 2 minutes for the tablets to disintegrate . Stir before giving to prepare slurry and administer. Please exclude Patients with feeding tube less than 14 [place] Citizen ([place], J-tube etc) and pediatric and patients. Maalox Advanced 30 mL, Inactive Regular Strength Route: PO, 2018 [place] SUSP Drug Form: SUSP, Dosing Weight 97.869, kg, QID, PRN Indigestion, Start date: 04/08/18 7:44:00 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, Duration: 30 day, Stop date: 05/08/18 7:43:00 CDTNotes: (aluminum hydroxide-ma gnesium hyd-simethic one [phone] /5ml 30 ml ud WILBERT) metoprolol 75 mg, 1.5 No Longer extended release tab, Route: Active 2019 [place] PO, Drug form: ERTAB, Daily, Start date: 04/07/18 17:04:00 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, Duration: 30 day, Stop date: 05/07/18 9:00:00 CDTNotes: (Same as: Toprol XL) May split tab, but do not crush. Furosemide 40 MG 40 mg, 1 No Longer Oral Tablet tab, Route: Active 2018 [place] PO, Drug form: TAB, BID, Dosing Weight 97.869, kg, Start date: 04/07/18 17:00:00 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, Duration: 30 day, Stop date: 05/07/18 9:00:00 CDTNotes: (Same as: Lasix) May cause GI upset. Give with food or milk. carvedilol 12.5 mg, 1 Inactive tab, Route: 2019 [place] PO, Drug form: TAB, BID, Dosing Weight 97.869, kg, Start date: 04/07/18 17:00:00 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, Duration: 30 day, Stop date: 05/07/18 9:00:00 CDTNotes: Give with food. (Same As: Coreg) levofloxacin 250 750 mg=3 Active mg oral tablet tab, PO, 2019 [place] [id number], X 7 day, # 12 tab, 0 Refill(s), Pharmacy: [place] [id number] Zinc Sulfate 220 mg, 1 No Longer cap, Route: Active 2018 [place] PO, Drug form: CAP, Daily, Dosing Weight 97.869, kg, Start date: 04/07/18 9:00:00 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, Duration: 30 day, Stop date: 05/06/18 9:00:00 CDTNotes: (Zinc sulfate capsule) - 220 mg Zinc sulfate=50 mg elemental zinc Same as Zinc Sulfate Zetia 10 mg, 1 No Longer tab, Route: Active 2018 [place] PO, Drug form: TAB, Daily, Dosing Weight 97.869, kg, Start date: 04/07/18 9:00:00 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, Duration: 30 day, Stop date: 05/06/18 9:00:00 CDTNotes: (Same as: Zetia) Levemir Route: Inactive SUB-Q, 2018 [place] Bedtime, Dosing Weight 97.869, kg, Start date: 04/06/18 21:00:00 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, Duration: 30 day, Stop date: 05/05/18 21:00:00 CDT insulin glargine 70 unit, 0.7 No Longer mL, Route: Active 2018 [place] SUB-Q, Drug form: SOLN, Bedtime, Start date: 04/06/18 21:00:00 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, Duration: 30 day, Stop date: 05/05/18 21:00:00 CDTNotes: (Same as: Lantus) Do not hold insulin without contacting prescriber WASTE: F/P - Black; E - [employer] Trash Bin "single patient use only" Pentoxifylline 400 mg, 1 No Longer tab, Route: Active 2018 [place] PO, Drug form: ERTAB, BID, Dosing Weight 97.869, kg, Start date: 04/06/18 17:00:00 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, Duration: 30 day, Stop date: 05/06/18 9:00:00 CDTNotes: Non-Formular y Drug. Do not crush or chew. (Same as: Trental) carvedilol 12.5 mg, Inactive Route: PO, 2018 [place] Drug form: TAB, BID, Dosing Weight 97.869, kg, Start date: 04/06/18 17:00:00 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, Duration: 30 day, Stop date: 05/06/18 9:00:00 CDT Protonix 40 mg, 1 No Longer tab, Route: Active 2018 [place] PO, Drug form: ECTAB, Before Dinner, Dosing Weight 97.869, kg, Start date: 04/06/18 16:30:00 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, Duration: 30 day, Stop date: 05/05/18 16:30:00 CDTNotes: Tablet should not be chewed or crushed. (Same as: Protonix) omega-3 1,000 mg, 1 No Longer polyunsaturated cap, Route: Active 2019 [place] fatty acids PO, Drug form: CAP, QID, Dosing Weight 97.869, kg, Start date: 04/06/18 13:00:00 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, Duration: 30 day, Stop date: 05/06/18 9:00:00 CDTNotes: (Same as: Lovaza, formally named [place]) "Do Not Crush" Aspirin 81 MG 81 mg, 1 No Longer Enteric Coated tab, Route: Active 2019 [place] Tablet PO, Drug form: ECTAB, Daily, Dosing Weight 103.636, kg, Start date: 04/06/18 9:00:00 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, Duration: 30 day, Stop date: 05/05/18 9:00:00 CDTNotes: Do not crush or chew. (Same As: Ecotrin) Enoxaparin 40 mg, 0.4 No Longer mL, Route: Active 2019 [place] SUB-Q, Drug form: INJ, Daily, Dosing Weight 103.636, kg, Start date: 04/06/18 9:00:00 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, Duration: 30 day, Stop date: 05/05/18 9:00:00 CDTNotes: (Same as: Lovenox) Saline Flush 10 ml, No Longer 0.9% Route: IVP, Active 2018 [place] Drug Form: INJ, Dosing Weight 103.636, kg, Q12H, Start date: 04/05/18 21:00:00 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, Duration: 30 day, Stop date: 05/05/18 9:00:00 CDTNotes: (Same as: BD Posiflush) Metolazone 5 mg, PO, Active Daily, PRN 2019 [place], # 15 tab, 0 Refill(s) Levemir See Active Instructions 2019 [place] , 70 units SUB-Q at bedtime, 0 Refill(s) Furosemide 40 MG 40 mg=1 tab, Active Oral Tablet PO, BID, 0 2018 [place] Refill(s) Pentoxifylline 400 mg, PO, Active BID, 0 [place] Refill(s) omega-3 1,000 mg, Active polyunsaturated PO, QID, 0 2018 [place] fatty acids Refill(s) Zinc Sulfate 220 mg, PO, Active Daily, 0 2018 [place] Refill(s) Albuterol 0.833 3 ml, Route: No Longer MG/ML / NEB, Drug Active 2018 [place] Ipratropium Form: SOLN, [place] 0.167 Dosing MG/ML Inhalant Weight Solution 103.636, kg, [DuoNeb] PRN, PRN Respiratory Pathway, Start date: 04/05/18 18:41:00 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, Duration: 30 day, Stop date: 05/05/18 19:40:00 CDTNotes: (Same as: Duoneb) Insulin Lispro 1 unit, 0.01 No Longer mL, Route: Active 2019 [place] SUB-Q, Drug form: SOLN, Bedtime, Dosing Weight 103.636, kg, PRN Blood Glucose Results, Start date: 04/05/18 18:33:00 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, Duration: 30 day, Stop date: 05/05/18 18:32:00 CDTNotes: (Same as: Humalog ) Roll in palms of hands gently; Do not shake `vigorously. "Single Patient Use Only " WASTE: F/P - Black; E - Municipal Trash Bin Stable for 28 days at room temperature. Expires in days from __Date Glucagon 1 mg, Route: No Longer IM, Drug Active 2018 [place] form: PDR/INJ, PRN, Dosing Weight 103.636, kg, PRN Blood Glucose Results, Start date: 04/05/18 18:33:00 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, Duration: 30 day, Stop date: 05/05/18 19:32:00 CDT Dextrose 50% 25 gm, 50 No Longer Syringe mL, Route: Active 2018 [place] IVP, Drug Form: INJ, Dosing Weight 103.636, kg, PRN, PRN Blood Glucose Results, Start date: 04/05/18 18:33:00 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, Duration: 30 day, Stop date: 05/05/18 19:32:00 CDT Tessalon Perles 200 mg, 2 No Longer cap, Route: Active 2019 [place] PO, Drug form: CAP, TID, Dosing Weight 103.636, kg, PRN Cough, Start date: 04/05/18 17:20:00 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, Duration: 30 day, Stop date: 05/05/18 17:19:00 CDTNotes: (Same As: Tessalon Perles) "Do Not Crush" Dextromethorphan 10 mL, No Longer Hydrobromide 2 Route: PO, Active 2019 [place] MG/ML / Drug Form: Guaifenesin 20 SYRP, Dosing MG/ML Oral Weight Solution 103.636, kg, Q4H, PRN as needed for cough, Start date: 04/05/18 17:20:00 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, Duration: 30 day, Stop date: 05/05/18 17:19:00 CDTNotes: (dextrometho rphan-guaife nesin 10-100mg/5ml 10 ml oral SOLN ud) (Same as: Robitussin DM) Lasix 40 mg, 4 mL, No Longer Route: IVP, Active 2018 [place] Drug form: INJ, Q8H, Dosing Weight 103.636, kg, Start date: 04/05/18 16:00:00 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, Duration: 30 day, Stop date: 05/05/18 8:00:00 CDTNotes: (Same as: Lasix) MEDICATION WASTE Product Size: 40 mg Product Wasted: ___ mg Guaifenesin 20 100 mg=5 mL, Inactive MG/ML Oral PO, Q4H, 0 2018 [place] Solution Refill(s) [Robafen] Doxycycline 100 mg, 0 Inactive Refill(s) 2019 [place] Pentoxifylline 400 mg, PO, Inactive TID, 0 2018 [place] Refill(s) Levemir SUB-Q, 0 Inactive Refill(s) 2019 [place] ezetimibe 10 MG 10 mg=1 tab, Active Oral Tablet PO, Daily, # 2019 [place] [Zetia] 30 tab, 0 Refill(s) Metolazone 5 MG 5 mg=1 tab, Inactive Oral Tablet PO, Daily, 0 [place] Refill(s) lisinopril 5 mg 5 mg=1 tab, Active oral tablet PO, Daily, # 2019 [place] 30 tab, 0 Refill(s) Levaquin 750 mg, 3 No Longer tab, Route: Active 2019 [place] PO, Drug form: TAB, [id number], Dosing Weight 103.636, kg, Start date: 04/05/18 11:00:00 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, Duration: 7 day, Stop date: 04/12/18 11:00:00 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, ABX Indication: PneumoniaNot es: Do not give w/antacids, dairy pdt & minerals Take 1 hr before or 2 hr after dairy pdt (Same as:Levaquin) Saline Flush 10 ml, No Longer 0.9% Route: IVP, Active 2018 [place] Drug Form: INJ, Dosing Weight 103.636, kg, PRN, PRN Line Flush, Start date: 04/05/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, Duration: 30 day, Stop date: 05/05/18 11:46:00 CDTNotes: (Same as: BD Posiflush) Hydralazine 10 mg, 0.5 No Longer mL, Route: Active 2018 [place] IVP, Drug form: INJ, Q4H, Dosing Weight 103.636, kg, PRN Elevated BP, if sbp>150, 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: 04/05/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, Duration: 30 day, Stop date: 05/05/18 10:46:00 CDTNotes: (Same as: Apresoline) Push over 5 minutes Diphenhydramine 25 mg, 1 No Longer tab, Route: Active 2019 [place] PO, Drug form: TAB, Bedtime, Dosing Weight 103.636, kg, PRN Insomnia, Start date: 04/05/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, Duration: 30 day, Stop date: 05/05/18 10:46:00 CDT Ondansetron 4 mg, 1 tab, No Longer Route: PO, Active 2019 [place] Drug form: TAB, Q8H, Dosing Weight 103.636, kg, PRN Nausea & Vomiting, Start date: 04/05/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 (Same as: Tylenol) Morphine 2 mg, 2 mL, No Longer Route: IVP, Active 2018 [place] Drug form: SOLN, Q4H, Dosing Weight 103.636, kg, PRN Pain Score 4-6, Start date: 04/05/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, Duration: 30 day, Stop date: 05/05/18 10:46:00 CDTNotes: Preservative free. (Same as: Morphine Sulfate-PF) Acetaminophen 1 tab, No Longer 325 MG / Route: PO, Active 2018 [place] Hydrocodone Drug Form: Bitartrate 5 MG TAB, Dosing Oral Tablet Weight 103.636, kg, Q4H, PRN Pain Score 4-6, Start date: 04/05/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, Duration: 30 day, Stop date: 05/05/18 10:46:00 CDTNotes: (Same as: Williams 325/5) Do not exceed 4gm/day of acetaminophe n. Nitroglycerin 0.4 mg, 1 No Longer tab, Route: Active 2019 [place] SL, Drug form: TAB, Q5Min, Dosing Weight 103.636, kg, PRN Chest Pain, Start date: 04/05/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, Duration: 3 doses or times, Stop date: Limited # of timesNotes: (Same as:Nitroquic k, Nitrostat) "Do Not Crush" Sublingual tablet Lasix 80 mg, 8 mL, Inactive Route: IVP, 2018 [place] Drug form: INJ, ONCE, Dosing Weight 103.636, kg, Priority: STAT, Start date: 04/05/18 10:39:00 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, Stop date: 04/05/18 10:39:00 CSTNotes: (Same as: Lasix) MEDICATION WASTE Product Size: 40 mg Product Wasted: ___ mg Dexamethasone 10 mg, 2.5 Inactive mL, Route: 2018 [place] IV, Drug form: INJ, ONCE, Dosing Weight 103.636, kg, Priority: STAT, Start date: 04/05/18 9:52:00 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, Stop date: 04/05/18 9:52:00 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 Albuterol 0.833 3 mL, Route: Inactive MG/ML / NEB, Drug 2018 [place] Ipratropium Form: SOLN, [place] 0.167 Dosing MG/ML Inhalant Weight Solution 103.636, kg, [DuoNeb] ONCE, Start date: 04/05/18 9:52:00 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, Stop date: 04/05/18 9:52:00 CSTNotes: (Same as: Duoneb) Fish Oil Ultra 1,000 mg, 1 PO Active 1000 mg oral cap, PO, 2011 capsule Daily, Substitution Allowed, CAP Lasix 40 mg, 4 mL, IV No Longer Chhaya Route: IV, Active 2011 Drug form: INJ, [id number], Start date: 08/01/11 16:01:00, Duration: 30 day, Stop date: 08/31/11 6:00:00 lisinopril 10 mg, 1 PO No Longer Renee tab, Route: Active 2011 PO, Drug form: TAB, Daily, Priority: NOW, Start date: 07/31/11 16:17:00, Duration: 30 day, Stop date: 08/30/11 9:00:00 Lasix 20 mg, 2 mL, IVP No Longer Mirian Route: IVP, Active 2011 [facility] Drug form: INJ, ONCE, Start date: 07/31/11 12:31:00, Stop date: 07/31/11 12:31:00 aspirin 81 mg 81 mg, 1 CHEW No Longer Mirian tablet, chewable tab, Route: Active 2011 [facility] CHEW, Drug form: CHEWTAB, Daily, Start date: 07/30/11 9:00:00, Duration: 30 day, Stop date: 08/28/11 9:00:00 atropine 0.5 mg, 5 IVP No Longer Mirian mL, Route: Active 2011 [facility] IVP, Drug form: INJ, PRN, PRN Bradycardia, Start date: 07/27/11 12:05:00, Duration: 30 day, Stop date: 08/26/11 12:04:00 nitroglycerin 0.4 mg, 1 SL No Longer Mirian 0.4 mg tab, Route: Active 2011 [facility] sublingual SL, Drug tablet form: TAB, Q5Min, PRN Chest Pain, Start date: 07/27/11 12:05:00, Duration: 30 day, Stop date: 08/26/11 12:04:00 Definity 1.65 mg, 1.5 IV No Longer Chhaya mL, Route: Active 2011 [facility] IV, Drug form: SUSP, ONCALL, Start date: 07/25/11 12:00:00, Duration: 1 doses or times, Stop date: 07/26/11 0:00:00 vancomycin 1.5 gm, 500 IV No Longer Sarvat mL, Route: Active 2011 [facility] IV, Drug form: SOLN, Q16H, Start date: 07/24/11 10:00:00, Duration: 30 day, Stop date: 08/22/11 5:00:00 Levemir 10 unit, 0.1 SUB-Q No Longer Mirian mL, Route: Active 2011 [facility] SUB-Q, Drug form: INJ, Daily, Start date: 07/22/11 12:00:00, Duration: 30 day, Stop date: 08/21/11 9:00:00 Dextrose 50% in 50 mL, IVP No Longer Mirian Water IV Route: IVP, Active 2011 [facility] date: 07/22/11 11:58:00, Duration: 30 day, Stop date: 08/21/11 11:57:00, PRN Blood Glucose Results glucagon 1 mg, Route: IM No Longer Mirian IM, Drug Active 2011 [facility] form: PDR/INJ, PRN, PRN Blood Glucose Results, Start date: 07/22/11 11:58:00, Duration: 30 day, Stop date: 08/21/11 11:57:00 NovoLog FlexPen 18 unit, SUB-Q No Longer Mir[place] 0.18 mL, Active 2011 [facility] Route: SUB-Q, Drug form: SOLN, Sliding Scale, PRN Blood Glucose Results, Start date: 07/22/11 11:58:00, Duration: 30 day, Stop date: 08/21/11 11:57:00 NovoLog FlexPen 3 unit, 0.03 SUB-Q No Longer Mirian mL, Route: Active 2011 [facility] SUB-Q, Drug form: SOLN, Sliding Scale, PRN Blood Glucose Results, Start date: 07/22/11 11:57:00, Duration: 30 day, Stop date: 08/21/11 11:56:00 Levemir FlexPen 20 unit, 0.2 SUB-Q No Longer Mir[place] mL, Route: Active 2011 [facility] SUB-Q, Drug form: INJ, Bedtime, Start date: 07/20/11 21:00:00, Stop date: 08/18/11 21:00:00 ferrous sulfate 60 mg, 1 mL, PO No Longer Francis Route: PO, Active 2011 [facility] Drug form: LIQ, Daily, Start date: 07/20/11 9:00:00, Duration: 30 day, Stop date: 08/18/11 9:00:00 acetaminophen-hy 1 tab, PO No Longer Mirian drocodone 325 Route: PO, Active 2011 [facility] mg-5 mg oral Drug Form: tablet TAB, Q4H, PRN Pain, Start date: 07/19/11 23:17:00, Duration: 30 day, Stop date: 08/18/11 23:16:00 NovoLog FlexPen 4 unit, 0.04 SUB-Q No Longer Mirian mL, Route: Active 2011 [facility] SUB-Q, Drug form: SOLN, Bedtime, PRN Blood Glucose Results, Start date: 07/19/11 22:05:00, Duration: 30 day, Stop date: 08/18/11 22:04:00 NovoLog FlexPen 12 unit, SUB-Q No Longer Mirian 0.12 mL, Active 2011 [facility] Route: SUB-Q, Drug form: SOLN, Sliding Scale, PRN Blood Glucose Results, Start date: 07/19/11 22:04:00, Duration: 30 day, Stop date: 08/18/11 22:03:00 furosemide 80 mg, 2 PO No Longer Francis tab, Route: Active 2011 [facility] PO, Drug form: TAB, Q12H, Start date: 07/19/11 21:00:00, Duration: 30 day, Stop date: 08/18/11 9:00:00 Lasix 40 mg, 2 PO No Longer Chhaya tab, Route: Active 2011 [facility] PO, Drug form: TAB, Q12H, Start date: 07/19/11 21:00:00, Stop date: 08/18/11 9:00:00 carvedilol 25 mg, 2 PO No Longer Mirian tab, Route: Active 2011 [facility] PO, Drug form: TAB, Q12H, Start date: 07/19/11 21:00:00, Stop date: 08/18/11 9:00:00 Protonix 40 mg, 1 PO No Longer Francis tab, Route: Active 2011 [facility] PO, Drug form: ECTAB, Before Dinner, Start date: 07/19/11 16:30:00, Duration: 30 day, Stop date: 08/17/11 16:30:00 DuoNeb 3 ml, Route: INHALATION No Longer Francis inhalation INHALATION, Active 2011 [facility] solution Drug Form: SOLN, RQID, Start date: 07/19/11 15:00:00, Duration: 30 day, Stop date: 08/18/11 11:00:00 Lovenox 30 mg, 0.3 SUB-Q No Longer Francis mL, Route: Active 2011 SUB-Q, Drug form: INJ, [id number], Start date: 07/19/11 12:00:00, Duration: 30 day, Stop date: 08/19/11 12:00:00 vancomycin 1.5 gm, 500 IV No Longer Sarvat mL, Route: Active 2011 [facility] IV, Drug form: SOLN, [id number], Start date: 07/18/11 18:00:00, Duration: 30 day, Stop date: 08/17/11 10:00:00 meropenem 1 gm, Route: IVPB No Longer Sarvat IVPB, Active 2011 [facility] [id number], Start date: 07/18/11 17:00:00, Duration: 30 day, Stop date: 08/17/11 9:00:00 Dextrose 50% 12.5 gm, 25 IVP No Longer Mirian Syringe mL, Route: Active 2011 [facility] IVP, Drug Form: INJ, PRN, PRN Blood Glucose Results, Start date: 07/18/11 15:05:00, Duration: 30 day, Stop date: 08/17/11 15:04:00 glucagon 1 mg, Route: IM No Longer Mirian IM, Drug Active 2011 [facility] form: PDR/INJ, PRN, PRN Blood Glucose Results, Start date: 07/18/11 15:05:00, Duration: 30 day, Stop date: 08/17/11 15:04:00 insulin aspart 1 unit, 0.01 SUB-Q No Longer Mirian mL, Route: Active 2011 [facility] SUB-Q, Drug form: SOLN, TID-Before Meals, PRN Blood Glucose Results, Start date: 07/18/11 15:05:00, Duration: 30 day, Stop date: 08/17/11 15:04:00 ferrous sulfate 65 mg, PO, PO Active Substitution 2011 Allowed, TAB Sodium Chloride 125 mL, IV No Longer [place] 0.9% (Bolus) IV Rate: 125 Active 2011 [facility] 125 mL ml/hr, Infuse over: 1 hr, Route: IV, Dosing Weight 87.273 kg, Total Volume: 125, Bolus Dose, Priority: STAT, Start date: 07/18/11 12:53:00, Duration: 1 doses or times, Stop date: 07/18/11 13:52:00 azithromycin 500 mg, 250 IVPB No Longer [place] mL, Route: Active 2011 IVPB, Drug form: PDR/INJ, ONCE, Priority: STAT, Start date: 07/18/11 12:22:00, Stop date: 07/18/11 12:22:00 Rocephin 1 g/ NS 1 gm, Route: IVPB No Longer [place] (NaCl 0.9%) 50 IVPB, ONCE, Active 2011 mL IV solution Priority: STAT, Start date: 07/18/11 12:21:00, Stop date: 07/18/11 12:21:00 Saline Flush 5 ml, Route: IVP No Longer [place] 0.9% IVP, Drug Active 2011 Form: INJ, PRN, PRN Line Flush, Start date: 07/18/11 11:09:00, Duration: 24 hr, Stop date: 07/19/11 11:08:00 Claritin 10 mg 10 mg, 1 PO Active [place] oral tablet tab, PO, 2011 Daily, 30 tab, Substitution Allowed, TAB Astelin 137 2 spray, NASAL Active [place] mcg/inh nasal NASAL, BID, 2011 spray 1 vial, Substitution Allowed, Maintenance Astelin 137 2 spray, NASAL No Longer [place] mcg/inh nasal NASAL, BID, Active 2011 spray 1 vial, Substitution Allowed, Maintenance Claritin 10 mg 10 mg, 1 PO No Longer [place] oral tablet tab, PO, Active 2011 Daily, 30 tab, Substitution Allowed, TAB ferrous sulfate 324 mg, 1 PO Active Francis 324 mg oral tab, PO, 2011 tablet BID, 60 tab, Substitution Allowed, TAB influenza virus 0.5 ml, IM No Longer SYSTEM vaccine, Route: IM, Active 2011 inactivated Drug Form: SUSP, Start date: 05/14/11 9:00:00, Stop date: 05/14/11 9:00:00 glucagon 1 mg, Route: IM No Longer White IM, Drug Active 2011 form: PDR/INJ, PRN, PRN Blood Glucose Results, Start date: 05/13/11 18:56:00, Duration: 30 day, Stop date: 06/12/11 18:55:00 Dextrose 50% 12.5 gm, 25 IVP No Longer White Syringe mL, Route: Active 2011 [facility] IVP, Drug Form: INJ, PRN, PRN Blood Glucose Results, Start date: 05/13/11 18:56:00, Duration: 30 day, Stop date: 06/12/11 18:55:00 ferrous sulfate 325 mg, 1 PO No Longer Francis tab, Route: Active 2011 [facility] PO, Drug form: ECTAB, BID, Start date: 05/13/11 17:00:00, Duration: 30 day, Stop date: 06/12/11 9:00:00 carvedilol 6.25 mg, 2 PO No Longer White tab, Route: Active 2011 [facility] PO, Drug form: TAB, Q12H, HOLD AM DOSE UNTIL PATIENT EVALUATED BY CARDIOLOGY AND MEDICATION CLARIFIED FOR CONTINUED USE., Start date: 05/13/11 10:56:00, Duration: 30 day, Stop date: 06/12/11 9:00:00 Please ask Please ask MISC No Longer White Fudger to Fudger Active 2011 [facility] see if okay to to see if give Coreg okay to give Coreg, 1, Drug form: MISC, Route: MISC, Q12H, 05/13/11 9:00:00, Duration: 30 day, Stop date: 06/11/11 21:00:00 Saline Flush 5 ml, Route: IVP No Longer Mirian 0.9% IVP, Drug Active 2011 [facility] Form: INJ, Q12H, Start date: 05/13/11 9:00:00, Duration: 30 day, Stop date: 06/11/11 21:00:00 lisinopril 10 mg, 1 PO No Longer Renee tab, Route: Active 2011 [facility] PO, Drug form: TAB, Daily, Start date: 05/13/11 9:00:00, Duration: 30 day, Stop date: 06/11/11 9:00:00 furosemide 80 mg, 2 PO No Longer White tab, Route: Active 2011 PO, Drug form: TAB, BID, Start date: 05/13/11 9:00:00, Duration: 30 day, Stop date: 06/11/11 17:00:00 Protonix 40 mg, 1 PO No Longer White tab, Route: Active 2011 PO, Drug form: ECTAB, Daily, Start date: 05/13/11 9:00:00, Duration: 30 day, Stop date: 06/11/11 9:00:00 aspirin 81 mg, 1 PO No Longer White tab, Route: Active 2011 PO, Drug form: CHEWTAB, Breakfast, Start date: 05/13/11 8:00:00, Duration: 30 day, Stop date: 06/11/11 8:00:00 nitroglycerin 0.4 mg, 1 SL No Longer Mirian 0.4 mg tab, Route: Active 2011 sublingual SL, Drug tablet form: TAB, Q5Min, PRN Chest Pain, Start date: 05/13/11 7:07:00, Duration: 30 day, Stop date: 06/12/11 7:06:00 atropine 0.5 mg, 5 IVP No Longer Mirian mL, Route: Active 2011 IVP, Drug form: INJ, PRN, PRN Bradycardia, Start date: 05/13/11 7:07:00, Duration: 30 day, Stop date: 06/12/11 7:06:00 Saline Flush 5 ml, Route: IVP No Longer Mirian 0.9% IVP, Drug Active 2011 Form: INJ, PRN, PRN Line Flush, Start date: 05/13/11 6:40:00, Duration: 30 day, Stop date: 06/12/11 6:39:00 Protonix 40 mg 40 mg, 1 PO Active [place] oral enteric tab, PO, 2011 coated tablet Daily, 30 tab, Substitution Allowed, ECTAB furosemide 80 mg 80 mg, 1 PO Active [place] oral tablet tab, PO, 2011 BID, 30 tab, Substitution Allowed, TAB aspirin 81 mg, Active [place] Daily, 2011 Substitution Allowed metFORmin 850 mg 850 mg, 1 PO Active oral tablet tab, PO, 2011 BID, 30 tab, Substitution Allowed Accupril 10 mg 10 mg, 1 PO Active oral tablet tab, PO, 2011 Daily, 30 tab, Substitution Allowed, TAB carvedilol 6.25 6.25 mg, 1 PO Active White mg oral tablet tab, PO, 2011 BID, 180 tab, Substitution Allowed, TAB Saline Flush 5 ml, Route: IVP No Longer Nicolas 0.9% IVP, Drug Active 2011 Form: INJ, PRN, PRN Line Flush, Start date: 05/12/11 23:56:00, Duration: 30 day, Stop date: 06/11/11 23:55:00 Allergies, Adverse Reactions, Alerts Substance Category Reaction Severity Reaction Status Date Comments Source type Reported penicillins Assertion Drug Active allergy [place] levoFLOXacin Assertion Drug Active recently <sup>1</sup> intolerance given [place] inpatient was nauseated and not able to eat Immunizations Immunization Date Site Status Last Comments Source Given Updated pneumococcal Left completed Ernesto [facility] 13-valent 9 deltoid vaccine influenza virus completed Janette [facility] vaccine, 2 inactivated influenza virus Right completed Janette [facility] vaccine, 2 deltoid inactivated Results Order Name Results Value Reference Date Interpretation Comments Source Range CHEM PANEL eGFR 04/13 Result Comment: The eGFR is calculated using the CKD-EPI formula. In most young, healthy individuals the eGFR will be >90 mL/ min/1.73m2. The eGFR declines with age. An eGFR of 60-89 may be normal in [place] mL/min/1.7 some populations, particularly the elderly, for whom the CKD-EPI formula has not been extensively validated. Use of the eGFR is not recommended in the following populations: [address] Individuals with unstable creatinine concentrations, including patients and those with serious co-morbid conditions. Patients with extremes in muscle mass or diet. The data above are obtained from the National Kidney Disease Education Program (NKDEP) which additionally recommends that when the eGFR is used in patients with extremes of body mass index for purposes of drug dosing, the eGFR should be multiplied by the estimated BMI. CHEM PANEL AGAP 8.5 meq/L 10.0 - 04/13 MH 20.0 [place] CHEM PANEL Potassium 3.5 meq/L 3.5 - 5.1 04/13 MH Lvl /2018 [place] CHEM PANEL Chloride Lvl 100 meq/L 95 - 109 04/13 [place] CHEM PANEL CO2 33 meq/L 24 - 32 04/13 [place] CHEM PANEL Calcium Lvl 8.6 mg/dL 8.5 - 10.5 04/13 [place] CHEM PANEL BUN 75 mg/dL 7 - 22 04/13 [place] CHEM PANEL Sodium Lvl 138 meq/L 135 - 145 04/13 [place] CHEM PANEL Creatinine 2.24 mg/dL 0.50 - 04/13 MH Lvl 1.40 [place] CHEM PANEL Glucose Lvl 105 mg/dL 70 - 99 04/13 [place] URINE AND UA Glucose Negative Negative 04/13 STOOL mg/dL mg/dL [place] URINE AND UA Ketones Negative Negative 04/13 [facility] mg/dL mg/dL [place] URINE AND UA Bili Negative Negative 04/13 STOOL [place] *NA* (04/12/18 6:33 PM) URINE AND UA Blood Negative Negative 04/13 STOOL [place] (04/12/18 6:33 PM) URINE AND UA 0.2 EU/dL 0.1 - 1.0 04/13 STOOL Urobilinogen [place] URINE AND UA Nitrite Negative Negative 04/13 STOOL [place] (04/12/18 6:33 PM) URINE AND UA Leuk Est Negative Negative 04/13 STOOL [place] (04/12/18 6:33 PM) URINE AND UA Protein Negative Negative 04/13 STOOL mg/dL mg/dL [place] URINE AND UA Color Yellow Yellow 04/13 STOOL [place] *NA* (04/12/18 6:33 PM) URINE AND UA Turbidity Clear Clear 04/13 STOOL [place] (04/12/18 6:33 PM) URINE AND UA Spec Grav 1.010 <=1.030 04/13 STOOL [place] URINE AND UA pH 5.5 5.0 - 8.0 04/13 STOOL [place] URINE AND UA Sq Epi None Seen Few 04/13 STOOL [place] (04/12/18 6:33 PM) URINE AND UA RBC 1 /HPF 0 - 2 04/13 STOOL [place] URINE AND UA Mucus Few /LPF None Seen 04/13 STOOL /LPF [place] URINE AND UA WBC None Seen 0 - 5 04/13 [place] (04/12/18 6:33 PM) URINE CHEM U Chloride 15 meq/L 04/13 [place] URINE CHEM U Potassium 19.0 meq/L 04/13 [place] URINE CHEM U Sodium 25 meq/L 04/13 [place] URINE CHEM U Protein 9.5 mg/dL 04/13 [place] URINE CHEM U Prot/Creat 0.10 04/13 [place] URINE CHEM U Creatinine 95.30 04/13 mg/dL [place] URINE CHEM U Osmolality 386 300 - 800 04/13 mOsm/kg [place] CHEM PANEL eGFR 26 04/12 Result Comment: The eGFR is calculated using the CKD-EPI formula. In most young, healthy individuals the eGFR will be >90 mL/ min/1.73m2. The eGFR declines with age. An eGFR of 60-89 may be normal in mL/min/1.7 some populations, particularly the elderly, for whom the CKD-EPI formula has not been extensively validated. Use of the eGFR is not recommended in the following populations: [address] Individuals with unstable creatinine concentrations, including patients and those with serious co-morbid conditions. Patients with extremes in muscle mass or diet. The data above are obtained from the National Kidney Disease Education Program (NKDEP) which additionally recommends that when the eGFR is used in patients with extremes of body mass index for purposes of drug dosing, the eGFR should be multiplied by the estimated BMI. CHEM PANEL Calcium Lvl 8.7 mg/dL 8.5 - 10.5 04/12 [place] CHEM PANEL Glucose Lvl 120 mg/dL 70 - 99 04/12 [place] CHEM PANEL Creatinine 2.39 mg/dL 0.50 - 04/12 MH Lvl 1.40 [place] CHEM PANEL BUN 84 mg/dL 7 - 22 04/12 [place] CHEM PANEL AGAP 12.4 meq/L 10.0 - 04/12 MH 20.0 [place] CHEM PANEL Sodium Lvl 138 meq/L 135 - 145 04/12 [place] CHEM PANEL CO2 30 meq/L 24 - 32 04/12 [place] CHEM PANEL Chloride Lvl 99 meq/L 95 - 109 04/12 [place] CHEM PANEL Potassium 3.4 meq/L 3.5 - 5.1 04/12 MH Lv [place] CHEM PANEL eGFR 23 04/12 Result Comment: The eGFR is calculated using the CKD-EPI formula. In most young, healthy individuals the eGFR will be >90 mL/ min/1.73m2. The eGFR declines with age. An eGFR of 60-89 may be normal in MH mL/min/1. some populations, particularly the elderly, for whom the CKD-EPI formula has not been extensively validated. Use of the eGFR is not recommended in the following populations: [place] [id number] Individuals with unstable creatinine concentrations, including patients and those with serious co-morbid conditions. Patients with extremes in muscle mass or diet. The data above are obtained from the National Kidney Disease Education Program (NKDEP) which additionally recommends that when the eGFR is used in patients with extremes of body mass index for purposes of drug dosing, the eGFR should be multiplied by the estimated BMI. CHEM PANEL CO2 30 meq/L 24 - 32 04/12 [place] CHEM PANEL Chloride Lvl 97 meq/L 95 - 109 04/12 [place] CHEM PANEL Sodium Lvl 137 meq/L 135 - 145 04/12 [place] CHEM PANEL Potassium 3.6 meq/L 3.5 - 5.1 04/12 Lv [place] CHEM PANEL Calcium Lvl 8.6 mg/dL 8.5 - 10.5 04/12 [place] CHEM PANEL AGAP 13.6 meq/L 10.0 - 04/12 MH 20.0 [place] CHEM PANEL BUN 87 mg/dL 7 - 22 04/12 [place] CHEM PANEL Creatinine 2.71 mg/dL 0.50 - 02 MH Lvl 1.40 [place] CHEM PANEL Glucose Lvl 203 mg/dL 70 - 99 04/12 [place] Retroperit Retroperiton PROCEDURE: RENAL ULTRASOUND 04/12 - [facility] rodriguez ea Complete - [place] Complete US US INDICATION: Acute kidney injury. Read by: Aaron Nina MD Dictated Date/time: 04/12/18 15:04 Electronically Signed by: Aaron Nina MD 04/12/18 15:05 FINAL REPORT COMPARISON: 04/10/2018 right upper quadrant abdominal ultrasound. TECHNIQUE: Sonographic evaluation of the kidneys and urinary bladder was performed. FINDINGS: KIDNEYS: The right kidney measures 11.9 cm in length. Normal contour and parenchymal echogenicity. There is no hydronephrosis, mass lesion, or perinephric fluid collection. The left kidney measures 11.7 cm in length. Normal contour and parenchymal echogenicity. There is no hydronephrosis, mass lesion, or perinephric fluid collection. BLADDER: Normal. Abdominal aorta including the bifurcation and IVC are completely obscured by overlying gas. IMPRESSION: Normal renal ultrasound. SL: SG-M Gram Stain Gram Stain 04/11 Report Performed [place] By: [facility] lab Culture: Moderate Yeast 04/11 Respiratory [place] w/Gram Stain Normal Respiratory [place] Isolated CARDIAC Troponin-I 0.04 ng/mL 0.00 - 04/11 ENZYMES 0.40 [place] HEMATOLOGY Eosinophils 1.2 % 0.0 - 4.0 04/11 [place] HEMATOLOGY Monocytes 8.0 % 2.0 - 12.0 04/11 [place] HEMATOLOGY Lymphocytes 27.0 % 20.0 - 04/11 40.0 [facility] Monocytes # 0.9 K/CMM 0.0 - 0.8 04/11 [facility] Lymphocytes 3.1 K/CMM 1.0 - 5.5 04/11 # [place] HEMATOLOGY Segs 63.4 % 45.0 - 04/11 75.0 [facility] Basophils 0.4 % 0.0 - 1.0 04/11 [facility] Neutrophils 7.4 K/CMM 1.5 - 8.1 04/11 # [facility] Eosinophils 0.1 K/CMM 0.0 - 0.5 04/11 # [facility] MCHC 34.9 g/dL 32.0 - 04/11 MH 36.0 [facility] Platelet 190 K/CMM 133 - 450 04/11 [place] HEMATOLOGY MPV 8.3 fL 7.4 - 10.4 04/11 /2018 [place] HEMATOLOGY Hgb 15.7 g/dL 14.0 - 04/11 MH 18.0 [place] HEMATOLOGY WBC 11.6 K/CMM 3.7 - 10.4 04/11 /2018 [place] HEMATOLOGY RBC 5.12 M/CMM 4.70 - 04/11 MH 6.10 [place] HEMATOLOGY Hct 45.1 % 42.0 - 04/11 MH 54.0 [place] HEMATOLOGY MCV 88.0 fL 80.0 - 04/11 MH 94.0 [place] HEMATOLOGY MCH 30.7 pg 27.0 - 04/11 MH 31.0 [place] HEMATOLOGY RDW 14.4 % 11.5 - 04/11 14.5 [place] MOLECULAR Influenza A Negative Negative 04/11 DIAGNOSTIC PCR /2018 [place] (04/10/18 11:50 PM) MOLECULAR Influenza B Negative Negative 04/11 DIAGNOSTIC PCR /2018 [place] (04/10/18 11:50 PM) MOLECULAR RSV PCR Negative Negative 04/11 DIAGNOSTIC /2018 [place] (04/10/18 11:50 PM) MOLECULAR Source [employer] Swab 04/11 DIAGNOSTIC Respiratory /2018 [place] Panel PCR (04/10/18 11:50 PM) MOLECULAR Source [employer] Swab 04/11 DIAGNOSTIC Parainfluenz /2018 [place] a Virus PCR (04/10/18 11:50 PM) MOLECULAR Parainfluenz Negative Negative 04/11 DIAGNOSTIC a 2 PCR [place] (04/10/18 11:50 PM) MOLECULAR Parainfluenz Negative Negative 04/11 DIAGNOSTIC a 1 PCR /2018 [place] (04/10/18 11:50 PM) MOLECULAR Parainfluenz Negative Negative 04/11 DIAGNOSTIC a 3 PCR [place] (04/10/18 11:50 PM) MOLECULAR Adenovirus Negative Negative 04/11 DIAGNOSTIC PCR /2018 [place] (04/10/18 11:50 PM) MOLECULAR Source [employer] Swab 04/11 DIAGNOSTIC Adenovirus [place] PCR (04/10/18 11:50 PM) CARDIAC Troponin-I 0.04 ng/mL 0.00 - 04/11 ENZYMES 0.40 [place] CHEM PANEL Lactic Acid 1.4 mMol/L 0.5 - 2.2 04/11 MH Lvl /2018 [place] CARDIAC Troponin-I 0.05 ng/mL 0.00 - 04/11 ENZYMES 0.40 [place] CHEM PANEL Lipase Lvl 87 unit/L 73 - 393 04/11 [place] CHEM PANEL B/C Ratio 31 6 - 25 04/11 [place] CHEM PANEL Globulin 4.3 g/dL 2.7 - 4.2 04/11 [place] CHEM PANEL A/G Ratio 0.7 0.7 - 1.6 04/11 [place] CHEM PANEL Bili Total 1.1 mg/dL 0.2 - 1.3 04/11 [place] CHEM PANEL Alk Phos 48 unit/L 39 - 136 04/11 [place] CHEM PANEL ALT 13 unit/L 0 - 65 04/11 [place] CHEM PANEL AST 23 unit/L 0 - 37 04/11 [place] CHEM PANEL Total 7.5 g/dL 6.4 - 8.4 04/11 [place] CHEM PANEL Albumin Lvl 3.2 g/dL 3.5 - 5.0 04/11 [place] HEMATOLOGY MPV 8.6 fL 7.4 - 10.4 04/11 [place] HEMATOLOGY WBC 13.1 K/CMM 3.7 - 10.4 04/11 [place] HEMATOLOGY RBC 5.30 M/CMM 4.70 - 04/11 MH 6.10 [place] HEMATOLOGY Hct 46.6 % 42.0 - 04/11 MH 54.0 [place] HEMATOLOGY MCV 88.0 fL 80.0 - 04/11 MH 94.0 [place] HEMATOLOGY Hgb 16.1 g/dL 14.0 - 04/11 MH 18.0 [place] HEMATOLOGY MCH 30.3 pg 27.0 - 04/11 MH 31.0 [place] HEMATOLOGY MCHC 34.5 g/dL 32.0 - 04/11 MH 36.0 [place] HEMATOLOGY Platelet 217 K/CMM 133 - 450 04/11 [place] HEMATOLOGY RDW 14.1 % 11.5 - 04/11 MH 14. [place] HEMATOLOGY Lymphocytes 24.9 % 20.0 - 04/11 MH 40.0 /2018 [place] HEMATOLOGY Segs 67.4 % 45.0 - 02 MH 75.0 /2019 [place] HEMATOLOGY Lymphocytes 3.3 K/CMM 1.0 - 5.5 04/11 MH # /2019 [place] HEMATOLOGY Eosinophils 0.5 % 0.0 - 4.0 04/11 MH /2018 [place] HEMATOLOGY Basophils 0.3 % 0.0 - 1.0 04/11 /2018 [place] HEMATOLOGY Monocytes 6.9 % 2.0 - 12.0 04/11 /2018 [place] HEMATOLOGY Neutrophils 8.9 K/CMM 1.5 - 8.1 04/11 MH # /2018 [place] HEMATOLOGY Monocytes # 0.9 K/CMM 0.0 - 0.8 04/11 [place] HEMATOLOGY Eosinophils 0.1 K/CMM 0.0 - 0.5 04/11 # /2019 [place] Abdomen Abdomen RUQ Clinical Indication: - gallstones. 04/10 - [facility] RUQ US /2018 - [place] Comparison: None. Read by: Peri Dickerson MD Dictated Date/time: 04/10/18 23:57 Electronically Signed by: Peri Dickerson MD 04/10/18 23:59 FINAL REPORT TECHNIQUE: Grayscale and limited color sonographic evaluation of the right upper quadrant of the abdomen and gallbladder region was performed with standard technique. FINDINGS: LIVER: The liver is normal in size. Examination is markedly limited. BILE DUCTS: The intrahepatic and extrahepatic bile ducts are not dilated with the common bile duct measuring 3 mm. GALLBLADDER: There are no gallstones, gallbladder sludge, pericholecystic fluid or wall thickening. PANCREAS: The pancreas is not visualized. KIDNEY: The right kidney measures 11.8 x 6.2 x 5.4 cm There is normal renal contour and morphology. There is normal parenchymal echotexture. There is no hydronephrosis. ASCITES: There is no right abdominal ascites. IMPRESSION: Limited study. No evidence of gallstone. No hydronephrosis in the right kidney. SL: KIANAUSTAFA-M Chest wo Chest wo Chest wo contrast CT 04/10 - [facility] contrast contrast CT /2018 - [place] [facility] CLINICAL HX: - CKD, pneumonia LLL. Read by: Jan James MD Dictated Date/time: 04/10/18 21:48 Electronically Signed by: Jan James MD 04/10/18 22:09 FINAL REPORT COMPARISON: 04/06/2012 TECHNIQUE: Contiguous transaxial images of the chest were performed without IV contrast. Reformats are available in sagittal and coronal projections. CT imaging performed at this location utilizes radiation dose optimization techniques which include one or more of the following: -Automated exposure control -Adjustment of the mA and/or kV according to patient size -Use of iterative reconstruction technique CT Radiation Dose DLP 786.39 mGy-cm FINDINGS: SUPPORT DEVICES: none LOWER NECK: Symmetric appearance of thyroid gland without focal abnormality. LUNGS AND AIRWAYS: There is mild interval decrease in the size of the pleural collection at the left lung base. Increased attenuation material is noted within this collection, likely iatrogenic. There i s adjacent basilar atelectasis. Remainder of left lung and right lung are clear. CARDIOVASCULAR: Mild cardiomegaly. Coronary artery and valvular calcifications. Atherosclerotic disease is noted at the arch and descending thoracic aorta.. LYMPH NODES: Evaluation is limited due to lack of IV contrast but no significant mediastinal or hilar lymphadenopathy is evident. SOFT TISSUE AND BONES: . No significant bony abnormality is noted. ESOPHAGUS AND UPPER ABDOMEN: The esophagus demonstrates normal morphology. Limited images of the upper abdomen reveal calcified gallstones. IMPRESSION: Mild decrease in the size of chronic left-sided pleural collection. Increased attenuation material is now noted within the collection, likely iatrogenic. Mild adjacent basilar atelectasis. Stable cardiomegaly. Coronary artery and valvular calcifications. Cholelithiasis. SL: TALYA Chest Chest 1view Clinical Indication: Chest pain; 04/10 - [address] DX DX /2018 [facility] Comparison: 04/08/2018 Read by: Vick Ford MD Dictated Date/time: 04/10/18 19:41 FINDINGS: Electronically Signed by: Vick Ford MD 04/10/18 19:45 FINAL REPORT AP chest radiographs shows normal lung volumes with left lower lobe airspace disease. There is no pneumothorax. The heart size and pulmonary vasculature are normal. The trachea is midline. There are no clinically significant osseous abnormalities noted. There are sternal wires. IMPRESSION: 1. Left lower lobe airspace disease which is unchanged when compared to previous exam. SL: [id number] HEMATOLOGY INR 1.14 0.85 - 04/08 1. 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 Electronically Signed by: Kuldeep Dent MD 04/08/18 13:09 FINAL REPORT IMPRESSION: Stable severely enlarged cardiac silhouette. Postoperative median sternotomy. Atherosclerotic thoracic aorta. The lungs are emphysematous. Persistent increased opacity is present within the left lower lobe likely reflecting a combination of pleural effusion and consolidation. SL: [id number] CHEM PANEL Magnesium 2.3 mg/dL 1.8 - 2.4 04/08 Lv [place] CHEM PANEL eGFR 33 04/08 Result Comment: The eGFR is calculated using the CKD-EPI formula. In most young, healthy individuals the eGFR will be >90 mL/ min/1.73m2. The eGFR declines with age. An eGFR of 60-89 may be normal in MH mL/min/1. some populations, particularly the elderly, for whom the CKD-EPI formula has not been extensively validated. Use of the eGFR is not recommended in the following populations: [address] Individuals with unstable creatinine concentrations, including patients and those with serious co-morbid conditions. Patients with extremes in muscle mass or diet. The data above are obtained from the National Kidney Disease Education Program (NKDEP) which additionally recommends that when the eGFR is used in patients with extremes of body mass index for purposes of drug dosing, the eGFR should be multiplied by the estimated BMI. CHEM PANEL BUN 65 mg/dL 7 - 22 04/08 [place] CHEM PANEL Creatinine 2.01 mg/dL 0.50 - 04/08 MH Lvl 1.40 [place] CHEM PANEL Potassium 3.4 meq/L 3.5 - 5.1 04/08 MH Lvl [place] CHEM PANEL Chloride Lvl 96 meq/L 95 - 109 04/08 [place] CHEM PANEL Sodium Lvl 137 meq/L 135 - 145 04/08 [place] CHEM PANEL Glucose Lvl 239 mg/dL 70 - 99 04/08 [place] CHEM PANEL CO2 32 meq/L 24 - 32 04/08 [place] CHEM PANEL AGAP 12.4 meq/L 10.0 - 04/08 MH 20.0 [place] CHEM PANEL Calcium Lvl 9.8 mg/dL 8.5 - 10.5 04/08 [place] CHEM PANEL Phosphorus 4.7 mg/dL 2.5 - 4.5 04/08 [place] HEMATOLOGY MPV 8.4 fL 7.4 - 10.4 04/08 [place] HEMATOLOGY Hct 48.6 % 42.0 - 04/08 MH 54.0 [place] HEMATOLOGY MCHC 35.6 g/dL 32.0 - 04/08 MH 36.0 [place] HEMATOLOGY Platelet 243 K/CMM 133 - 450 04/08 [place] HEMATOLOGY RDW 14.1 % 11.5 - 04/08 MH 14. [place] HEMATOLOGY MCH 31.1 pg 27.0 - 04/08 MH 31.0 [place] HEMATOLOGY MCV 87.3 fL 80.0 - 04/08 MH 94.0 [place] HEMATOLOGY WBC 11.0 K/CMM 3.7 - 10.4 04/08 [place] HEMATOLOGY Hgb 17.3 g/dL 14.0 - 04/08 MH 18.0 [place] HEMATOLOGY RBC 5.57 M/CMM 4.70 - 04/08 MH 6.10 [place] HEMATOLOGY Lymphocytes 22.9 % 20.0 - 04/08 MH 40.0 [place] HEMATOLOGY Neutrophils 7.6 K/CMM 1.5 - 8.1 04/08 [place] HEMATOLOGY Basophils 0.5 % 0.0 - 1.0 04/08 [place] HEMATOLOGY Segs 69.7 % 45.0 - 04/08 MH 75.0 [place] HEMATOLOGY Lymphocytes 2.5 K/CMM 1.0 - 5.5 04/08 [place] HEMATOLOGY Monocytes 6.5 % 2.0 - 12.0 04/08 [place] HEMATOLOGY Eosinophils 0.4 % 0.0 - 4.0 04/08 [place] HEMATOLOGY Monocytes # 0.7 K/CMM 0.0 - 0.8 04/08 [place] HEMATOLOGY Basophils # 0.1 K/CMM 0.0 - 0.2 04/08 [place] CHEM PANEL eGFR 33 04/07 Result Comment: The eGFR is calculated using the CKD-EPI formula. In most young, healthy individuals the eGFR will be >90 mL/ min/1.73m2. The eGFR declines with age. An eGFR of 60-89 may be normal in mL/min/1.7 some populations, particularly the elderly, for whom the CKD-EPI formula has not been extensively validated. Use of the eGFR is not recommended in the following populations: [address] Individuals with unstable creatinine concentrations, including patients and those with serious co-morbid conditions. Patients with extremes in muscle mass or diet. The data above are obtained from the National Kidney Disease Education Program (NKDEP) which additionally recommends that when the eGFR is used in patients with extremes of body mass index for purposes of drug dosing, the eGFR should be multiplied by the estimated BMI. CHEM PANEL Chloride Lvl 96 meq/L 95 - 109 04/07 [place] CHEM PANEL CO2 32 meq/L 24 - 32 04/07 [place] CHEM PANEL Calcium Lvl 9.8 mg/dL 8.5 - 10.5 04/07 [place] CHEM PANEL AGAP 12.3 meq/L 10.0 - 04/07 MH 20.0 [place] CHEM PANEL Glucose Lvl 157 mg/dL 70 - 99 04/07 [place] CHEM PANEL BUN 57 mg/dL 7 - 22 04/07 [place] CHEM PANEL Sodium Lvl 137 meq/L 135 - 145 04/07 [place] CHEM PANEL Creatinine 2.01 mg/dL 0.50 - 04/07 MH Lvl 1.40 [place] CHEM PANEL Potassium 3.3 meq/L 3.5 - 5.1 04/07 Lvl [place] CHEM PANEL Magnesium 2.2 mg/dL 1.8 - 2.4 04/07 Lvl [place] CHEM PANEL Phosphorus 4.4 mg/dL 2.5 - 4.5 04/07 [place] HEMATOLOGY Monocytes 8.0 % 2.0 - 12.0 04/07 [place] HEMATOLOGY Basophils 0.3 % 0.0 - 1.0 04/07 [place] HEMATOLOGY Lymphocytes 34.0 % 20.0 - 02 MH 40.0 /2019 [place] HEMATOLOGY Eosinophils 0.5 % 0.0 - 4.0 04/07 [place] HEMATOLOGY Segs 57.2 % 45.0 - 04/07 MH 75.0 [place] HEMATOLOGY Eosinophils 0.1 K/CMM 0.0 - 0.5 04/07 MH # [place] HEMATOLOGY Monocytes # 0.9 K/CMM 0.0 - 0.8 04/07 [place] HEMATOLOGY Lymphocytes 4.0 K/CMM 1.0 - 5.5 04/07 MH # [place] HEMATOLOGY Neutrophils 6.7 K/CMM 1.5 - 8.1 04/07 MH # [place] HEMATOLOGY RDW 14.1 % 11.5 - 04/07 MH 14.5 [place] HEMATOLOGY MCHC 34.6 g/dL 32.0 - 04/07 MH 36.0 [place] HEMATOLOGY MPV 8.5 fL 7.4 - 10.4 04/07 [place] HEMATOLOGY Platelet 231 K/CMM 133 - 450 04/07 [place] HEMATOLOGY WBC 11.8 K/CMM 3.7 - 10.4 04/07 [place] HEMATOLOGY Hgb 16.2 g/dL 14.0 - 04/07 MH 18.0 [place] HEMATOLOGY RBC 5.38 M/CMM 4.70 - 04/07 MH 6.10 [place] HEMATOLOGY Hct 46.8 % 42.0 - 04/07 MH 54.0 [place] HEMATOLOGY MCV 87.0 fL 80.0 - 04/07 MH 94.0 [place] HEMATOLOGY MCH 30.1 pg 27.0 - 04/07 MH 31.0 [place] CHEM PANEL eGFR 33 04/06 Result Comment: The eGFR is calculated using the CKD-EPI formula. In most young, healthy individuals the eGFR will be >90 mL/ min/1.73m2. The eGFR declines with age. An eGFR of 60-89 may be normal in MH mL/min/1. some populations, particularly the elderly, for whom the CKD-EPI formula has not been extensively validated. Use of the eGFR is not recommended in the following populations: [address] Individuals with unstable creatinine concentrations, including patients and those with serious co-morbid conditions. Patients with extremes in muscle mass or diet. The data above are obtained from the National Kidney Disease Education Program (NKDEP) which additionally recommends that when the eGFR is used in patients with extremes of body mass index for purposes of drug dosing, the eGFR should be multiplied by the estimated BMI. CHEM PANEL Glucose Lvl 245 mg/dL 70 - 99 04/06 [place] CHEM PANEL BUN 50 mg/dL 7 - 22 04/06 [place] CHEM PANEL Sodium Lvl 134 meq/L 135 - 145 04/06 [place] CHEM PANEL Creatinine 2.00 mg/dL 0.50 - 04/06 MH Lvl 1.40 [place] CHEM PANEL Chloride Lvl 94 meq/L 95 - 109 04/06 [place] CHEM PANEL Potassium 3.5 meq/L 3.5 - 5.1 04/06 MH Lvl [place] CHEM PANEL Calcium Lvl 9.3 mg/dL 8.5 - 10.5 04/06 [place] CHEM PANEL CO2 31 meq/L 24 - 32 04/06 [place] CHEM PANEL AGAP 12.5 meq/L 10.0 - 04/06 MH 20.0 [place] CARDIAC CK MB Index 1.6 0.0 - 2.5 04/06 MH ENZYMES [place] CARDIAC Troponin-I 0.02 ng/mL 0.00 - 04/06 MH ENZYMES 0.40 [place] CARDIAC CK MB 2.3 ng/mL 0.5 - 3.6 04/06 MH ENZYMES [place] CARDIAC Total CK 143 unit/L 12 - 191 04/06 MH ENZYMES [place] CARDIAC CK MB Index 1.3 0.0 - 2.5 04/05 MH ENZYMES /2018 [place] CARDIAC CK MB 2.1 ng/mL 0.5 - 3.6 04/05 MH ENZYMES /2018 [place] CARDIAC Troponin-I 0.02 ng/mL 0.00 - 04/05 MH ENZYMES 0.40 [place] CARDIAC Total CK 159 unit/L 12 - 191 04/05 MH ENZYMES /2018 [place] CARDIAC Troponin-I 0.03 ng/mL 0.00 - 04/05 MH ENZYMES 0.40 [place] CARDIAC proBNP 1899 pg/mL 0 - 125 04/05 MH ENZYMES [place] CHEM PANEL Magnesium 2.0 mg/dL 1.8 - 2.4 04/05 MH Lvl /2018 [place] CHEM PANEL A/G Ratio 0.8 0.7 - 1.6 04/05 [place] CHEM PANEL Globulin 4.0 g/dL 2.7 - 4.2 04/05 [place] CHEM PANEL B/C Ratio 18 6 - 25 04/05 [place] CHEM PANEL Total 7.4 g/dL 6.4 - 8.4 04/05 [place] CHEM PANEL Alk Phos 53 unit/L 39 - 136 04/05 [place] CHEM PANEL AST 16 unit/L 0 - 37 04/05 [place] CHEM PANEL Albumin Lvl 3.4 g/dL 3.5 - 5.0 04/05 [place] CHEM PANEL ALT 10 unit/L 0 - 65 04/05 [place] CHEM PANEL Bili Total 0.4 mg/dL 0.2 - 1.3 04/05 [place] HEMATOLOGY RBC 5.06 M/CMM 4.70 - 04/05 MH 6.10 [place] HEMATOLOGY MPV 8.2 fL 7.4 - 10.4 04/05 [place] HEMATOLOGY MCH 30.4 pg 27.0 - 04/05 MH 31.0 [place] HEMATOLOGY Hgb 15.4 g/dL 14.0 - 04/05 MH 18.0 [place] HEMATOLOGY WBC 7.3 K/CMM 3.7 - 10.4 04/05 [place] HEMATOLOGY Platelet 189 K/CMM 133 - 450 04/05 [place] HEMATOLOGY MCHC 33.9 g/dL 32.0 - 04/05 MH 36.0 [place] HEMATOLOGY Hct 45.3 % 42.0 - 04/05 MH 54.0 [place] HEMATOLOGY RDW 14.0 % 11.5 - 04/05 MH 14. [place] HEMATOLOGY MCV 89.7 fL 80.0 - 04/05 MH 94.0 [place] HEMATOLOGY Segs 59.2 % 45.0 - 04/05 MH 75.0 [place] HEMATOLOGY Monocytes # 0.5 K/CMM 0.0 - 0.8 04/05 [place] HEMATOLOGY Eosinophils 0.2 K/CMM 0.0 - 0.5 04/05 MH # /2019 [place] HEMATOLOGY Basophils # 0.1 K/CMM 0.0 - 0.2 04/05 MH /2018 [place] HEMATOLOGY Lymphocytes 31.1 % 20.0 - 04/05 MH 40.0 /2018 [place] HEMATOLOGY Monocytes 6.6 % 2.0 - 12.0 04/05 [place] HEMATOLOGY Eosinophils 2.2 % 0.0 - 4.0 04/05 /2018 [place] HEMATOLOGY Basophils 0.9 % 0.0 - 1.0 04/05 /2018 [place] HEMATOLOGY Neutrophils 4.3 K/CMM 1.5 - 8.1 04/05 MH # /2019 [place] HEMATOLOGY Lymphocytes 2.3 K/CMM 1.0 - 5.5 04/05 # /2019 [place] Chest 2 Chest 2 Clinical Indication: - Cough 04/05 - [facility] DX views DX /2018 - [place] Comparison: Comparison is made to chest radiograph examination dated 2011. Read by: Rashard Oro MD Dictated Date/time: 04/05/18 10:10 FINDINGS: Electronically Signed by: Rashard Oro MD 04/05/18 10:11 FINAL REPORT Median sternotomy wires are in place. The cardiac silhouette appears mildly enlarged. The superior mediastinal contours are within normal limits for appearance. The thoracic aorta appears calcified. The re is mild central pulmonary venous congestion with minimal to mild ill- defined opacities at the left lung base. Normal right basilar pulmonary opacities are present. No pneumothorax. IMPRESSION: 1. Post surgical changes of the chest with mild cardiomegaly, mild central pulmonary venous congestion, and minimal to mild atelectasis versus infiltrates at the left lung base. A small left pleural effusion is not definitively excluded on this exam. 2. Minimal right basilar subsegmental atelectasis versus infiltrates. SL: [id number] BEDSIDE Gluc POC 179 mg/dL 70 - 99 08/01 [place] 7Interpretive GLUCOSE [facility] /2011 Data: [facility] TESTING Upper Reportable Limit: 200 mg/dL. CHEMISTRY BUN 18 mg/dL 7 - 08/01 Normal [facility] CHEMISTRY Glucose Lvl 145 mg/dL 70 - 99 08/01 HI 10Interpretiv e Data: Adult [facility] reference range values reflect the clinical guidelinesof the [place] [employer]. CHEMISTRY CO2 29 meq/L 24 - 32 08/01 Normal [facility] CHEMISTRY Creatinine 1.2 mg/dL 0.5 - 1.4 08/01 Normal Lvl [facility] CHEMISTRY AGAP 11.7 meq/L 10.0 - 08/01 Normal MH 20.0 [facility] CHEMISTRY Calcium Lvl 9.0 mg/dL 8.5 - 10.5 08/01 Normal [facility] CHEMISTRY Sodium Lvl 141 meq/L 135 - 145 08/01 Normal [place] CHEMISTRY Potassium 3.7 meq/L 3.5 - 5.1 08/01 Normal Lvl [place] CHEMISTRY Chloride Lvl 104 meq/L 95 - 109 08/01 Normal [facility] BEDSIDE Gluc POC 163 mg/dL 70 - 99 08/01 HI 8Interpretive GLUCOSE [facility] Data: [facility] TESTING Upper Reportable Limit: 200 mg/dL. BEDSIDE Gluc POC 168 mg/dL 70 - 99 08/01 HI 9Interpretive GLUCOSE [facility] Data: [facility] TESTING Upper Reportable Limit: 200 mg/dL. CHEMISTRY Potassium 3.9 meq/L 3.5 - 5.1 07/31 Normal Lvl [place] CHEMISTRY Chloride Lvl 104 meq/L 95 - 109 07/31 Normal [facility] CHEMISTRY CO2 29 meq/L 24 - 32 07/31 Normal [facility] CHEMISTRY AGAP 12.9 meq/L 10.0 - 07/31 Normal 20.0 [facility] CHEMISTRY Calcium Lvl 8.9 mg/dL 8.5 - 10.5 07/31 Normal [facility] CHEMISTRY Sodium Lvl 142 meq/L 135 - 145 07/31 Normal [place] CHEMISTRY BUN 16 mg/dL 7 - 22 07/31 Normal [facility] CHEMISTRY Creatinine 1.0 mg/dL 0.5 - 1.4 07/31 Normal Lvl [place] CHEMISTRY Glucose Lvl 128 mg/dL 70 - 99 07/31 [place] 11Interpretiv e Data: Adult [facility] reference range values reflect the clinical guidelinesof the [place] [employer]. BEDSIDE Comment1 Assess 07/30 NA GLUCOSE patient /2011 [facility] TESTING BEDSIDE Comment2 Notify 07/30 NA GLUCOSE RN/ /2011 [facility] TESTING BEDSIDE Comment2 Notify 07/30 NA GLUCOSE RN/ /2011 [facility] TESTING BEDSIDE Comment1 Assess 07/30 NA GLUCOSE patient /2011 [facility] TESTING BEDSIDE Comment1 Notify 07/30 NA GLUCOSE RN/MD /2012 [facility] TESTING BEDSIDE Comment2 Notify 07/29 NA GLUCOSE RN/MD /2012 [facility] TESTING CHEMISTRY Glucose Lvl 141 mg/dL 70 - 99 07/28 HI 12Interpretiv /2011 e Data: Adult [facility] reference range values reflect the clinical guidelinesof the [place] [employer]. CHEMISTRY AGAP 12.5 meq/L 10.0 - 06/ Normal MH 20.0 /2011 [facility] CHEMISTRY Calcium Lvl 8.7 mg/dL 8.5 - 10.5 07/28 Normal [facility] CHEMISTRY BUN 15 mg/dL 7 - 22 06/ Normal /2011 [facility] CHEMISTRY CO2 31 meq/L 24 - 32 06/ Normal /2011 [facility] CHEMISTRY Creatinine 1.2 mg/dL 0.5 - 1.4 07/28 Normal Lvl /2011 [facility] CHEMISTRY Sodium Lvl 143 meq/L 135 - 145 07/28 Normal [facility] CHEMISTRY Potassium 3.5 meq/L 3.5 - 5.1 07/28 Normal Lvl /2011 [facility] CHEMISTRY Chloride Lvl 103 meq/L 95 - 109 07/28 Normal /2011 [facility] HEMATOLOGY Segs 59.5 % 45.0 - 06/08 Normal MH 75.0 /2011 [facility] HEMATOLOGY Monocytes 7.6 % 2.0 - 12.0 06/08 Normal MH /2011 [facility] HEMATOLOGY Lymphocytes 28.7 % 20.0 - 06/08 Normal MH 40.0 /2011 [facility] HEMATOLOGY Basophils 0.9 % 0.0 - 1.0 06/08 Normal MH /2011 [facility] HEMATOLOGY Eosinophils 3.3 % 0.0 - 4.0 06/08 Normal MH /2011 [facility] HEMATOLOGY Monocytes # 0.6 K/CMM 0.0 - 0.8 06/08 Normal MH /2011 [facility] HEMATOLOGY Lymphocytes 2.1 K/CMM 1.0 - 5.5 06/08 Normal MH # /2011 [facility] HEMATOLOGY Basophils # 0.1 K/CMM 0.0 - 0.2 06/08 Normal MH /2011 [facility] HEMATOLOGY Eosinophils 0.2 K/CMM 0.0 - 0.5 06/08 Normal MH # /2011 [facility] HEMATOLOGY Segs-Bands # 4.4 K/CMM 1.5 - 8.1 06/08 Normal MH /2011 [facility] HEMATOLOGY RDW 18.0 % 11.5 - 06/08 HI MH 14.5 /2011 [facility] HEMATOLOGY Platelet 259 K/CMM 133 - 450 06/ Normal /2011 [facility] HEMATOLOGY MPV 6.6 fL 7.4 - 10.4 / LOW MH /2011 [facility] HEMATOLOGY WBC 7.5 K/CMM 3.7 - 10.4 07/25 Normal /2011 [facility] HEMATOLOGY RBC 3.80 M/CMM 4.70 - 07/25 LOW MH 6.10 /2011 [facility] HEMATOLOGY Hct 31.4 % 42.0 - / LOW MH 54.0 /2011 [facility] HEMATOLOGY Hgb 10.5 g/dL 14.0 - 07/25 LOW MH 18.0 /2011 [facility] HEMATOLOGY MCH 27.7 pg 27.0 - 07/25 Normal MH 31.0 /2011 [facility] HEMATOLOGY MCV 82.6 fL 80.0 - 07/25 Normal MH 94.0 /2011 [facility] HEMATOLOGY MCHC 33.5 g/dL 32.0 - 07/25 Normal MH 36.0 /2011 [facility] CHEMISTRY Vanco Tr TND N/A 07/23 NA [facility] CHEMISTRY Vanco Tr 27.4 ug/ml 07/23 NA 15Interpretiv e Data: [facility] Therapeutic Range: Trough: 10 - 20 ug/mL Peak: 20 - 40 ug/mL Potential Toxicity: >80 ug/mL HEMATOLOGY Eosinophils 3.7 % 0.0 - 4.0 / Normal /2011 [facility] HEMATOLOGY Lymphocytes 2.1 K/CMM 1.0 - 5.5 07/23 Normal MH # /2011 [facility] HEMATOLOGY Basophils 0.7 % 0.0 - 1.0 07/23 Normal [facility] HEMATOLOGY Segs-Bands # 5.7 K/CMM 1.5 - 8.1 07/23 Normal [facility] HEMATOLOGY Monocytes 7.8 % 2.0 - 12.0 / Normal /2011 [facility] HEMATOLOGY Lymphocytes 23.4 % 20.0 - 06 Normal MH 40.0 /2011 [facility] HEMATOLOGY Segs 64.4 % 45.0 - 06/ Normal MH 75.0 /2011 [facility] HEMATOLOGY Monocytes # 0.7 K/CMM 0.0 - 0.8 / Normal /2011 [facility] HEMATOLOGY Eosinophils 0.3 K/CMM 0.0 - 0.5 06/ Normal MH # /2011 [facility] HEMATOLOGY Basophils # 0.1 K/CMM 0.0 - 0.2 / Normal /2011 [facility] HEMATOLOGY MCHC 33.8 g/dL 32.0 - 06/ Normal MH 36.0 /2011 [facility] HEMATOLOGY MCV 82.7 fL 80.0 - 06/ Normal MH 94.0 /2011 [facility] HEMATOLOGY RDW 17.2 % 11.5 - 06 HI MH 14.5 /2011 [facility] HEMATOLOGY Platelet 254 K/CMM 133 - 450 06/ Normal MH /2011 [facility] HEMATOLOGY MCH 27.9 pg 27.0 - 07/23 Normal MH 31.0 /2011 [facility] HEMATOLOGY Hgb 10.3 g/dL 14.0 - 07/23 LOW MH 18.0 /2011 [facility] HEMATOLOGY Hct 30.5 % 42.0 - 06/ LOW MH 54.0 /2011 [facility] HEMATOLOGY WBC 8.9 K/CMM 3.7 - 10.4 06/ Normal MH /2011 [facility] HEMATOLOGY RBC 3.69 M/CMM 4.70 - 07/23 LOW MH 6.10 [facility] HEMATOLOGY MPV 6.3 fL 7.4 - 10.4 06 LOW MH /2011 [facility] HEMATOLOGY MCHC 33.2 g/dL 32.0 - 06/04 Normal MH 36.0 /2011 [facility] HEMATOLOGY Hgb 10.7 g/dL 14.0 - 06 LOW MH 18.0 /2011 [facility] HEMATOLOGY Hct 32.2 % 42.0 - 06/ LOW MH 54.0 /2011 [facility] HEMATOLOGY MCV 83.0 fL 80.0 - 06/ Normal MH 94.0 /2011 [facility] HEMATOLOGY MCH 27.5 pg 27.0 - 07/21 Normal MH 31.0 /2011 [facility] HEMATOLOGY MPV 6.7 fL 7.4 - 10.4 / LOW MH /2011 [facility] HEMATOLOGY RDW 17.5 % 11.5 - 07/21 HI MH 14. [facility] HEMATOLOGY Platelet 265 K/CMM 133 - 450 06/ Normal MH /2011 [facility] HEMATOLOGY WBC 8.4 K/CMM 3.7 - 10.4 06/ Normal MH /2011 [facility] HEMATOLOGY RBC 3.88 M/CMM 4.70 - 07/21 LOW MH 6. [facility] HEMATOLOGY Basophils 0.5 % 0.0 - 1.0 / Normal MH /2011 [facility] HEMATOLOGY Lymphocytes 2.4 K/CMM 1.0 - 5.5 06/ Normal MH # /2011 [facility] HEMATOLOGY Segs-Bands # 5.0 K/CMM 1.5 - 8.1 06/ Normal [facility] HEMATOLOGY Monocytes 6.9 % 2.0 - 12.0 / Normal [facility] HEMATOLOGY Segs 60.0 % 45.0 - 06/ Normal 75.0 /2011 [facility] HEMATOLOGY Eosinophils 3.9 % 0.0 - 4.0 07/21 Normal [facility] HEMATOLOGY Lymphocytes 28.7 % 20.0 - 06/ Normal 40.0 /2011 [facility] HEMATOLOGY Eosinophils 0.3 K/CMM 0.0 - 0.5 / Normal # /2011 [facility] HEMATOLOGY Monocytes # 0.6 K/CMM 0.0 - 0.8 07/21 Normal /2011 [facility] HEMATOLOGY Basophils # 0.0 K/CMM 0.0 - 0.2 07/21 Normal /2011 [facility] CHEMISTRY Hgb A1C 9.2 % 07/20 NA 14Interpretiv e Data: [facility] HbA1C% eAG(mg/dL) Interpretatio n 6.0 126 Very good control 6.5 140 Very good control 7.0 154 Good Control 7.5 169 Good Control 8.0 183 Marginal Control, take action to lower 8.5 197 Marginal Control, take action to lower 9.0 212 Poor Control, take action to lower 9.5 226 Poor Control, take action to lower10.0 240 Poor Control, take action to lower CHEMISTRY Vanco Pk TLD 2300 07/19 [facility] CHEMISTRY Vanco Pk 34.2 ug/ml 07/19 NA 17Interpretiv e Data: [facility] Therapeutic Range: Trough: 10 - 20 ug/mL Peak: 20 - 40 ug/mL Potential Toxicity: >80 ug/mL CHEMISTRY Vanco Tr 20.6 ug/ml 07/18 NA 16Interpretiv e Data: [facility] Therapeutic Range: Trough: 10 - 20 ug/mL Peak: 20 - 40 ug/mL Potential Toxicity: >80 ug/mL CHEMISTRY Vanco Tr TND @6 07/18 [facility] HEMATOLOGY PTT 33.9 s 22.9 - 07/17 Normal 19Interpretiv 35.8 e Data: [facility] Heparin Therapeutic Range: 57 - 92 Second[facility] HEMATOLOGY PT 15.4 s 12.0 - 07/17 [facility] 14. [facility] HEMATOLOGY INR 1.22 0.85 - 07/17 HI 18Interpretiv 1. e Data: [facility] RECOMMENDED RANGES FOR PROTIME INR: 2.0-3.0 for most medical and surgical thromboemboli c states. 2.5-3.5 for artificial heart valves and recurrent embolism.INR SHOULD BE USED ONLY FOR PATIENTS ON STABLE ANTICOAGULANT THERAPY. IMMUNOLOGY HIV 1/2 Ab Negative Negative 07/17 [facility] *NA* (07/18/2011 16:43:00) IMMUNOLOGY TB - NIL 0.01 07/17 MH [facility] IMMUNOLOGY Mitogen - null 07/17 NIL /2011 [facility] IMMUNOLOGY NIL 0.04 07/17 NA MH [facility] IMMUNOLOGY Quantiferon NEGATIVE 07/17 - TB Gold [facility] BODY Alb BF Type Pleural 07/17 NA FLUIDS /2011 [facility] *NA* (07/18/2011 14:45:00) BODY Albumin BF 2.0 g/dL 07/17 2Interpretive FLUIDS Data: No [facility] established reference ranges. BODY Gluc BF Type Pleural 07/17 NA FLUIDS [facility] *NA* (07/18/2011 14:45:00) BODY Glucose BF 5 mg/dL 07/17 NA 1Interpretive FLUIDS Data: No [facility] established reference ranges. BODY LDH BF Type Pleural 07/17 Normal FLUIDS /2011 [facility] (07/18/2011 14:45:00) BODY LDH BF null 07/17 NA 3Interpretive FLUIDS Data: No [facility] established reference ranges. BODY Clarity BF Bloody Clear 07/17 ABN FLUIDS /2011 [facility] *ABN* (07/18/2011 14:45:00) BODY Color BF Red Colorless 07/17 ABN FLUIDS /2011 [facility] *ABN* (07/18/2011 14:45:00) BODY CellCnt BF Pleural 07/17 Normal FLUIDS Type /2011 [facility] (07/18/2011 14:45:00) BODY RBC BF [id number] 07/17 NA 4Interpretive MH FLUIDS /mm3 /2011 Data: No [facility] established reference ranges. BODY WBC BF [id number] 07/17 NA 5Interpretive FLUIDS /mm3 /2011 Data: No [facility] established reference ranges. BODY Segs BF 96 % 07/17 NA 6Interpretive FLUIDS Data: No [facility] established reference ranges. BODY Macrophage 1 % 07/17 NA FLUIDS BF [facility] BODY Lymph BF 3 % 07/17 NA MH FLUIDS [facility] Microbiolo Culture: 07/17 gy Aspirate/Bod /2011 [facility] y Fluid/Tissue Microbiolo Culture: 07/17 gy Fungal [facility] w/Smear Microbiolo Culture: 07/17 gy Blood [facility] CHEMISTRY Lactic Acid 1.4 mMol/L 0.5 - 2.2 07/17 Normal Lvl /2011 [facility] Microbiolo Culture: 07/17 gy Blood [facility] CHEMISTRY BNP 257 pg/mL <=100 07/17 HI 13Interpretiv MH e Data: [facility] Elevated results are in line with increasing severity of congestive heart failure. Minor elevations between 100 and 300 may be seen with Myocardial Ischemia, Sodium retaining drugs, and compensated/t reated heart failure. CHEMISTRY Troponin-I null 0.00 - 07/17 Normal 0.40 [facility] CHEMISTRY CK MB 3.2 ng/mL 0.5 - 3.6 07/17 Normal [facility] CHEMISTRY Albumin Lvl 3.3 g/dL 3.5 - 5.0 07/17 LOW [facility] CHEMISTRY B/C Ratio 26 6 - 25 07/17 HI [facility] CHEMISTRY A/G Ratio 0.6 0.7 - 1.6 07/17 LOW [facility] CHEMISTRY Globulin 5.8 g/dL 2.0 - 4.0 07/17 HI MH [facility] CHEMISTRY AST 5 U/L 0 - 37 07/17 Normal [facility] CHEMISTRY Alk Phos 57 U/L 39 - 136 07/17 Normal [facility] CHEMISTRY Bili Total 0.8 mg/dL 0.2 - 1.3 07/17 Normal [facility] CHEMISTRY ALT 7 U/L 0 - 65 07/17 Normal [facility] CHEMISTRY Total 9.1 g/dL 6.4 - 8.4 07/17 [facility] Protein [facility] CHEMISTRY Total CK 79 U/L 12 - 191 07/17 Normal [facility] CHEMISTRY CK MB Index 4.1 0.0 - 2.5 07/17 DC [facility] HEMATOLOGY Hct 27.7 % 42.0 - 05/13 LOW 54.0 [facility] HEMATOLOGY Hgb 9.0 g/dL 14.0 - 05/13 LOW 18.0 [facility] BEDSIDE Gluc POC 223 mg/dL 70 - 99 05/13 DC 1Interpretive GLUCOSE [facility] /2011 Data: [facility] TESTING Upper Reportable Limit: 200 mg/dL. BEDSIDE Comment1 Notify 05/13 [facility] GLUCOSE RN/ /2011 [facility] TESTING BEDSIDE Gluc POC 180 mg/dL 70 - 99 05/13 HI 2Interpretive GLUCOSE [facility] Data: [facility] TESTING Upper Reportable Limit: 200 mg/dL. BEDSIDE Comment1 Notify 05/13 [facility] GLUCOSE RN/ /2012 [facility] TESTING BEDSIDE Gluc POC 189 mg/dL 70 - 99 05/13 HI 3Interpretive GLUCOSE [facility] Data: [facility] TESTING Upper Reportable Limit: 200 mg/dL. CHEMISTRY FTI 3.9 05/13 NA [facility] CHEMISTRY Hgb A1C 8.2 % 05/13 NA 5Interpretive Data: HbA1C% [facility] eAG(mg/dL) Interpretatio n 6.0 126 Very good control 6.5 140 Very good control 7.0 154 Good Control 7.5 169 Good Control 8.0 183 Marginal Control, take action to lower 8.5 197 Marginal Control, take action to lower 9.0 212 Poor Control, take action to lower 9.5 226 Poor Control, take action to lower10.0 240 Poor Control, take action to lower CHEMISTRY TSH 1.500 0.360 - 05/13 Normal uIU/mL 3.740 [facility] CHEMISTRY T4 10.6 ug/dl 4.7 - 13.3 05/13 Normal [facility] CHEMISTRY T3 Uptake 37 % 31 - 39 05/13 Normal [facility] BEDSIDE Comment1 Notify 05/13 [facility] GLUCOSE RN/ [facility] TESTING CHEMISTRY Troponin-I null 0.00 - 05/12 Normal 0.40 [facility] CHEMISTRY CK MB 4.4 ng/mL 0.5 - 3.6 05/12 HI [facility] CHEMISTRY Troponin-I null 0.00 - 05/12 Normal 0.40 [facility] CHEMISTRY CK MB 4.5 ng/mL 0.5 - 3.6 05/12 HI [facility] CHEMISTRY Ferritin Lvl 328 ng/mL 22 - 275 05/12 HI [facility] CHEMISTRY TIBC 230 ug/dl 228 - 428 05/12 Normal [facility] CHEMISTRY Iron 26 ug/dl 45 - 160 05/12 LOW [facility] CHEMISTRY UIBC 204 ug/dl 110 - 370 05/12 Normal [facility] CHEMISTRY % Satur Fe 11 % 12 - 57 05/12 LOW [facility] HEMATOLOGY Retic Auto 1.5 % 0.5 - 1.5 05/12 Normal [facility] CHEMISTRY Magnesium 1.7 mg/dL 1.8 - 2.4 05/12 LOW Lvl [facility] CHEMISTRY Total CK 125 U/L 12 - 191 05/12 Normal [facility] CHEMISTRY CK MB 3.8 ng/mL 0.5 - 3.6 05/12 HI [facility] CHEMISTRY Troponin-I null 0.00 - 05/12 Normal MH 0.40 [facility] CHEMISTRY Total 8.1 g/dL 6.4 - 8.4 05/12 Normal Protein [facility] CHEMISTRY Albumin Lvl 2.8 g/dL 3.5 - 5.0 05/12 LOW [facility] CHEMISTRY ALT 9 U/L 0 - 65 05/12 Normal [facility] CHEMISTRY Alk Phos 47 U/L 39 - 136 05/12 Normal [facility] CHEMISTRY Bili Total 0.6 mg/dL 0.2 - 1.3 05/12 Normal [facility] CHEMISTRY Sodium Lvl 136 meq/L 135 - 145 05/12 Normal [facility] CHEMISTRY Potassium 3.9 meq/L 3.5 - 5.1 05/12 Normal [facility] CHEMISTRY Chloride Lvl 96 meq/L 95 - 109 05/12 Normal [facility] CHEMISTRY CO2 28 meq/L 24 - 32 05/12 Normal [facility] CHEMISTRY Calcium Lvl 9.4 mg/dL 8.5 - 10.5 05/12 Normal [facility] CHEMISTRY Globulin 5.3 g/dL 2.0 - 4.0 05/12 HI [facility] CHEMISTRY A/G Ratio 0.5 0.7 - 1.6 05/12 LOW [facility] CHEMISTRY B/C Ratio 15 6 - 25 05/12 Normal [facility] CHEMISTRY AGAP 15.9 meq/L 10.0 - 05/12 Normal MH 20.0 [facility] CHEMISTRY AST null 0 - 37 05/12 Normal [facility] CHEMISTRY Creatinine 1.2 mg/dL 0.5 - 1.4 05/12 Normal l [facility] CHEMISTRY Glucose Lvl 221 mg/dL 70 - 99 05/12 HI 4Interpretive Data: Adult [facility] reference range values reflect the clinical guidelinesof the [place] [employer]. CHEMISTRY BUN 18 mg/dL 7 - 22 05/12 Normal /2011 [facility] CHEMISTRY CK MB Index 3.0 0.0 - 2.5 05/12 HI MH /2011 [facility] HEMATOLOGY INR 1.28 0.85 - 05/12 HI 6Interpretive MH 1.17 Data: [facility] RECOMMENDED RANGES FOR PROTIME INR: 2.0-3.0 for most medical and surgical thromboemboli c states. 2.5-3.5 for artificial heart valves and recurrent embolism.INR SHOULD BE USED ONLY FOR PATIENTS ON STABLE ANTICOAGULANT THERAPY. HEMATOLOGY PT 16.0 s 12.0 - 05/12 HI MH 14.7 [facility] HEMATOLOGY Platelet 296 K/CMM 133 - 450 05/12 Normal MH /2011 [facility] HEMATOLOGY RDW 18.4 % 11.5 - 05/12 HI 14.5 [facility] HEMATOLOGY MPV 7.0 fL 7.4 - 10.4 05/12 LOW MH /2011 [facility] HEMATOLOGY Hgb 8.8 g/dL 14.0 - 05/12 LOW 18.0 [facility] HEMATOLOGY RBC 3.37 M/CMM 4.70 - 05/12 LOW 6.10 [facility] HEMATOLOGY Hct 27.0 % 42.0 - 05/12 LOW 54.0 [facility] HEMATOLOGY WBC 11.0 K/CMM 3.7 - 10.4 05/12 HI MH /2011 [facility] HEMATOLOGY MCH 26.2 pg 27.0 - 05/12 LOW 31.0 /2011 [facility] HEMATOLOGY MCHC 32.7 g/dL 32.0 - 05/12 Normal 36.0 [facility] HEMATOLOGY MCV 80.2 fL 80.0 - 05/12 Normal 94.0 [facility] HEMATOLOGY Monocytes # 0.6 K/CMM 0.0 - 0.8 05/12 Normal MH /2011 [facility] HEMATOLOGY Lymphocytes 1.7 K/CMM 1.0 - 5.5 05/12 Normal MH # /2011 [facility] HEMATOLOGY Eosinophils 0.2 K/CMM 0.0 - 0.5 05/12 Normal MH # /2011 [facility] HEMATOLOGY Segs-Bands # 8.5 K/CMM 1.5 - 8.1 05/12 HI MH [facility] HEMATOLOGY Basophils # 0.0 K/CMM 0.0 - 0.2 05/12 Normal MH /2011 [facility] HEMATOLOGY Segs 77.5 % 45.0 - 05/12 HI MH 75.0 /2011 [facility] HEMATOLOGY Basophils 0.4 % 0.0 - 1.0 05/12 Normal [facility] HEMATOLOGY Monocytes 5.1 % 2.0 - 12.0 05/12 Normal [facility] HEMATOLOGY Eosinophils 1.7 % 0.0 - 4.0 05/12 Normal [facility] HEMATOLOGY Lymphocytes 15.3 % 20.0 - 05/12 LOW MH 40.0 [facility] Vital Signs Vital Sign Value Date Comments Source Respitory Rate 18 04/13/[address] [facility] Systolic (mm Hg) 116 04/13/[address] [facility] Diastolic (mm Hg) 64 04/13/[address] [facility] Temperature Oral (F) 97.7 F 04/13/[address] [facility] Heart Rate 74 04/13/[address] [facility] Respitory Rate 18 04/13/[address] [facility] Temperature Oral (F) 98.4 F 04/13/[address] [facility] Heart Rate 68 04/13/[address] [facility] Systolic (mm Hg) 129 04/13/[address] [facility] Diastolic (mm Hg) 54 04/13/[address] [facility] Respitory Rate 17 04/13/[address] [facility] Heart Rate 62 04/13/[address] [facility] Systolic (mm Hg) 102 04/13/[address] [facility] Diastolic (mm Hg) 62 04/13/[address] [facility] Temperature Oral (F) 97.8 F 04/13/[address] [facility] BMI Calculated 31.92 04/11/[address] [facility] Weight 100.909 04/11/[address] [facility] Height 177.8 cm 04/11/[address] [facility] Height 177.8 cm 04/11/[address] [facility] BMI Calculated 28.47 04/11/[address] [facility] Weight 90 04/11/[address] [facility] Systolic (mm Hg) 106 04/08/[address] [facility] Diastolic (mm Hg) 69 04/08/[address] [facility] Heart Rate 94 04/08/[address] [facility] Temperature Oral (F) 97.4 F 04/08/[address] [facility] Respitory Rate 18 04/08/[address] [facility] Systolic (mm Hg) 132 04/08/[address] [facility] Diastolic (mm Hg) 66 04/08/[address] [facility] Respitory Rate 16 04/08/[address] [facility] Heart Rate 66 04/08/[address] [facility] Respitory Rate 18 04/08/[address] [facility] Temperature Oral (F) 97.4 F 04/08/[address] [facility] Systolic (mm Hg) 125 04/08/[address] [facility] Diastolic (mm Hg) 80 04/08/[address] [facility] Heart Rate 68 04/08/[address] [facility] Temperature Oral (F) 97.6 F 04/08/[address] [facility] Height 177.8 cm 04/06/[address] [facility] Weight 97.869 04/06/[address] [facility] BMI Calculated 30.96 04/06/[address] [facility] BMI Calculated 35.78 04/05/[address] [facility] Height 170.18 cm 04/05/[address] [facility] Weight 103.636 04/05/[address] [facility] Height 165.10 cm 10/04/2011 [facility] Weight 90.909 10/04/2011 [facility] Temperature Oral (F) 97.6 F 08/02/2011 [facility] Respitory Rate 16 08/02/2011 [facility] Diastolic (mm Hg) 90 08/02/2011 [facility] Systolic (mm Hg) 158 08/02/2011 [facility] Heart Rate 76 08/02/2011 [facility] Heart Rate 72 08/02/2011 [facility] Temperature Oral (F) 98.1 F 08/02/2011 [facility] Systolic (mm Hg) 147 08/02/2011 [facility] Respitory Rate 17 08/02/2011 [facility] Diastolic (mm Hg) 79 08/02/2011 [facility] Systolic (mm Hg) 143 08/02/2011 [facility] Diastolic (mm Hg) 87 08/02/2011 [facility] Temperature Oral (F) 98 F 08/02/2011 [facility] Respitory Rate 16 08/02/2011 [facility] Heart Rate 51 08/02/2011 [facility] Height 182.88 cm 07/18/2011 [facility] Weight 87.273 07/18/2011 [facility] Diastolic (mm Hg) 91 05/14/2011 [facility] Temperature Oral (F) 97.5 F 05/14/2011 [facility] Heart Rate 81 05/14/2011 [facility] Respitory Rate 20 05/14/2011 [facility] Systolic (mm Hg) 153 05/14/2011 [facility] Systolic (mm Hg) 121 05/14/2011 [facility] Diastolic (mm Hg) 73 05/14/2011 [facility] Temperature Oral (F) 98.1 F 05/14/2011 [facility] Heart Rate 77 05/14/2011 [facility] Respitory Rate 20 05/14/2011 [facility] Temperature Oral (F) 98.2 F 05/14/2011 [facility] Systolic (mm Hg) 143 05/14/2011 [facility] Diastolic (mm Hg) 89 05/14/2011 [facility] Heart Rate 85 05/14/2011 [facility] Respitory Rate 20 05/14/2011 [facility] Height 175.26 cm 05/13/2011 [facility] Weight 90.909 05/13/2011 [facility] Encounters Location Location Encounter Encounter Reason Attending ADM DC Status Source Details Type Number For Provider Date Date Visit Inpatient [id number] SYNCOPE ADNAN 05/11 05/13 Active [facility] , MIRIAN /2011 [facility] ANEMIA Inpatient [id number] ADNAN 07/17 08/01 Active [facility] MIRIAN [facility] Outpatient [id number] MARIELA 09/17 Active [facility] YESSICA FERNANDES /2011 [facility] KATERINA [id number] NISHEETH 10/02 10/02 Active [facility] CHHAYA /2011 [facility] Outpatient [id number] COPD MARIELA 04/06 Active [facility] FERNANDES /2012 [facility] Inpatient [id number] Peter 04/05 04/09 Ezio Chung /2018 [facility] Inpatient [id number] Jalyn 04/11 04/13 Ezio [place] /2018 [facility] Procedures Procedure Code Date Perfomer Comments Source BKA - Below knee [id number] [facility] amputation CABG x 5 - [id number] [facility] Coronary artery bypass grafts x 5 BKA - Below knee [id number] *Above knee [facility] amputation<sup>1 amputation </sup>
--- OUTSIDE RECORDS SUMMARY | 2018-07-23 06:32 | XMS REPORT | CCD ---
:1950 Author Organization [facility] Care Team Providers Name Role Phone NONE, None Primary Care Provider Unavailable Saurabh Hawthorne Consulting Provider Allergies, Adverse Reactions, Alerts Substance Reaction Status penicillins Active Problem List Condition Effective Dates Status CABG - Coronary artery bypass graft Active Diabetes mellitus Active Gastric reflux Active Hepatitis Active Hyperlipidemia Active Hypertension Active Multiple ulcers Active Medications Medication Instructions Start Date End Date Status Please ask Sand Mixer to Please ask Sand Mixer 05/13/2011 05/13/2011 Discontinued see if okay to give Coreg to see if okay to give Coreg, 1, Drug form: MISC, Route: MISC, Q12H, 05/13/11 9:00:00, Duration: 30 day, Stop date: 06/11/11 21:00:00 ferrous sulfate 324 mg 324 mg, 1 tab, PO, BID, 05/14/2011 Ordered oral tablet 60 tab, Substitution Allowed, TAB Claritin 10 mg oral tablet 10 mg, 1 tab, PO, Daily, 05/14/2011 Ordered 30 tab, Substitution Allowed, TAB Astelin 137 mcg/inh nasal 2 spray, NASAL, BID, 1 05/14/2011 Ordered spray vial, Substitution Allowed, Maintenance glucagon 1 mg, Route: IM, Drug 05/13/2011 05/14/2011 Discontinued form: PDR/INJ, PRN, PRN Blood Glucose Results, Start date: 05/13/11 18:56:00, Duration: 30 day, Stop date: 06/12/11 18:55:00 Dextrose 50% Syringe 12.5 gm, 25 mL, Route: 05/13/2011 05/14/2011 Discontinued IVP, Drug Form: INJ, PRN, PRN Blood Glucose Results, Start date: 05/13/11 18:56:00, Duration: 30 day, Stop date: 06/12/11 18:55:00 Dextrose 50% Syringe 25 gm, 50 mL, Route: 05/13/2011 05/14/2011 Discontinued IVP, Drug Form: INJ, PRN, PRN Blood Glucose Results, Start date: 05/13/11 18:56:00, Duration: 30 day, Stop date: 06/12/11 18:55:00 Saline Flush 0.9% 5 ml, Route: IVP, Drug 05/13/2011 05/14/2011 Discontinued Form: INJ, Q12H, Start date: 05/13/11 9:00:00, Duration: 30 day, Stop date: 06/11/11 21:00:00 Saline Flush 0.9% 5 ml, Route: IVP, Drug 05/13/2011 05/14/2011 Discontinued Form: INJ, PRN, PRN Line Flush, Start date: 05/13/11 6:40:00, Duration: 30 day, Stop date: 06/12/11 6:39:00 influenza virus vaccine, 0.5 ml, Route: IM, Drug 05/14/2011 05/14/2011 Completed inactivated Form: SUSP, Start date: 05/14/11 9:00:00, Stop date: 05/14/11 9:00:00 Saline Flush 0.9% 5 ml, Route: IVP, Drug 05/12/2011 05/13/2011 Discontinued Form: INJ, PRN, PRN Line Flush, Start date: 05/12/11 23:56:00, Duration: 30 day, Stop date: 06/11/11 23:55:00 Protonix 40 mg oral 40 mg, 1 tab, PO, Daily, 05/13/2011 Ordered enteric coated tablet 30 tab, Substitution Allowed, ECTAB furosemide 80 mg oral 80 mg, 1 tab, PO, BID, 05/13/2011 Ordered tablet 30 tab, Substitution Allowed, TAB aspirin 81 mg, Daily, 05/13/2011 Ordered Substitution Allowed metFORmin 850 mg oral 850 mg, 1 tab, PO, BID, 05/13/2011 Ordered tablet 30 tab, Substitution Allowed nitroglycerin 0.4 mg 0.4 mg, 1 tab, Route: 05/13/2011 05/14/2011 Discontinued sublingual tablet SL, Drug form: TAB, Q5Min, PRN Chest Pain, Start date: 05/13/11 7:07:00, Duration: 30 day, Stop date: 06/12/11 7:06:00 atropine 0.5 mg, 5 mL, Route: 05/13/2011 05/14/2011 Discontinued IVP, Drug form: INJ, PRN, PRN Bradycardia, Start date: 05/13/11 7:07:00, Duration: 30 day, Stop date: 06/12/11 7:06:00 ferrous sulfate 325 mg, 1 tab, Route: 05/13/2011 05/14/2011 Discontinued PO, Drug form: ECTAB, BID, Start date: 05/13/11 17:00:00, Duration: 30 day, Stop date: 06/12/11 9:00:00 Accupril 10 mg oral tablet 10 mg, 1 tab, PO, Daily, 05/13/2011 Ordered 30 tab, Substitution Allowed, TAB carvedilol 6.25 mg oral 6.25 mg, 1 tab, PO, BID, 05/13/2011 Ordered tablet 180 tab, Substitution Allowed, TAB Astelin 137 mcg/inh nasal 2 spray, NASAL, BID, 1 05/14/2011 05/14/2011 Discontinued spray vial, Substitution Allowed, Maintenance Claritin 10 mg oral tablet 10 mg, 1 tab, PO, Daily, 05/14/2011 05/14/2011 Discontinued 30 tab, Substitution Allowed, TAB lisinopril 10 mg, 1 tab, Route: PO, 05/13/2011 05/13/2011 Canceled Drug form: TAB, Daily, Start date: 05/13/11 9:00:00, Duration: 30 day, Stop date: 06/11/11 9:00:00 influenza virus vaccine, 0.5 ml, Route: IM, Drug 05/14/2011 05/14/2011 Completed inactivated Form: SUSP, Daily, Start date: 05/14/11 9:00:00, Duration: 1 doses or times, Stop date: 05/14/11 9:00:00 carvedilol 6.25 mg, 2 tab, Route: 05/13/2011 05/14/2011 Discontinued PO, Drug form: TAB, Q12H, HOLD AM DOSE UNTIL PATIENT EVALUATED BY CARDIOLOGY AND MEDICATION CLARIFIED FOR CONTINUED USE., Start date: 05/13/11 10:56:00, Duration: 30 day, Stop date: 06/12/11 9:00:00 furosemide 80 mg, 2 tab, Route: PO, 05/13/2011 05/14/2011 Discontinued Drug form: TAB, BID, Start date: 05/13/11 9:00:00, Duration: 30 day, Stop date: 06/11/11 17:00:00 Protonix 40 mg, 1 tab, Route: PO, 05/13/2011 05/14/2011 Discontinued Drug form: ECTAB, Daily, Start date: 05/13/11 9:00:00, Duration: 30 day, Stop date: 06/11/11 9:00:00 aspirin 81 mg, 1 tab, Route: PO, 05/13/2011 05/14/2011 Discontinued Drug form: CHEWTAB, Breakfast, Start date: 05/13/11 8:00:00, Duration: 30 day, Stop date: 06/11/11 8:00:00 Immunizations Vaccine Date Status influenza virus vaccine, inactivated 05/14/2011 Auth (Verified) Vital Signs Most recent to oldest 1 2 3 [Reference Range]: Height 175.26 cm (05/12/2011 23:27:00) Current Weight 90.000 kg (05/14/2011 04:46:00) Temperature Oral 97.5 DegF 98.1 DegF 98.2 DegF [96.4-99.1 DegF] (05/14/2011 15:00:00) (05/14/2011 11:00:00) (05/14/2011 07: 00:00) Systolic Blood Pressure 153 mmHg 121 mmHg 143 mmHg [90-140 mmHg] *HI* (05/14/2011 11:00:00) *HI* (05/14/2011 15:00:00) (05/14/2011 07:00:00) Diastolic Blood Pressure 91 mmHg 73 mmHg 89 mmHg [60-90 mmHg] *HI* (05/14/2011 11:00:00) (05/14/2011 07:00:00) (05/14/2011 15:00:00) Respiratory Rate [14-20 20 BRMIN 20 BRMIN 20 BRMIN BRMIN] (05/14/2011 15:00:00) (05/14/2011 11:00:00) (05/14/2011 07:00:00) Peripheral Pulse Rate 81 bpm 77 bpm 85 bpm [60-100 bpm] (05/14/2011 15:00:00) (05/14/2011 11:00:00) (05/14/2011 07:00: 00) Weight 90.909 kg (05/12/2011 23:27:00) Results BEDSIDE GLUCOSE TESTING Most recent to oldest 1 2 3 [Reference Range]: Gluc POC Lifscn [70-99 223 mg/dL 1 180 mg/dL 2 189 mg/dL 3 mg/dL] *HI* *HI* *HI* (05/14/2011 16:17:00) (05/14/2011 12:06:00) (05/14/2011 06:06:00) Comment1 Notify RN/MD Notify RN/MD Notify RN/MD *NA* *NA* *NA* (05/14/2011 12:06:00) (05/14/2011 06:06:00) (05/13/2011 20:58:00) 1Interpretive Data: Upper Reportable Limit: 200 mg/dL.2Interpretive Data: Upper Reportable Limit: 200 mg/dL.3Interpretive Data: Upper Reportable Limit: 200 mg/dL.CHEMISTRY Most recent to oldest 1 2 3 [Reference Range]: Sodium Lvl [135-145 mEq/L] 136 mEq/L (05/12/2011 23:50:00) Potassium Lvl [3.5-5.1 3.9 mEq/L mEq/L] (05/12/2011 23:50:00) Chloride Lvl [95-109 mEq/L] 96 mEq/L (05/12/2011 23:50:00) CO2 [24-32 mEq/L] 28 mEq/L (05/12/2011 23:50:00) AGAP [10.0-20.0 mEq/L] 15.9 mEq/L (05/12/2011 23:50:00) Creatinine Lvl [0.5-1.4 1.2 mg/dL mg/dL] (05/12/2011 23:50:00) BUN [7-22 mg/dL] 18 mg/dL (05/12/2011 23:50:00) B/C Ratio [6-25] 15 (05/12/2011 23:50:00) Glucose Lvl [70-99 mg/dL] 221 mg/dL 4 *HI* (05/12/2011 23:50:00) Total Protein [6.4-8.4 g/dL] 8.1 g/dL (05/12/2011 23:50:00) Albumin Lvl [3.5-5.0 g/dL] 2.8 g/dL *LOW* (05/12/2011 23:50:00) Globulin [2.0-4.0 g/dL] 5.3 g/dL *HI* (05/12/2011 23:50:00) A/G Ratio [0.7-1.6] 0.5 *LOW* (05/12/2011 23:50:00) Calcium Lvl [8.5-10.5 mg/dL] 9.4 mg/dL (05/12/2011 23:50:00) Magnesium Lvl [1.8-2.4 1.7 mg/dL mg/dL] *LOW* (05/12/2011 23:50:00) ALT [0-65 U/L] 9 U/L (05/12/2011 23:50:00) AST [0-37 U/L] <3 U/L (05/12/2011 23:50:00) Alk Phos [39-136 U/L] 47 U/L (05/12/2011 23:50:00) Bili Total [0.2-1.3 mg/dL] 0.6 mg/dL (05/12/2011 23:50:00) Total CK [12-191 U/L] 125 U/L (05/12/2011 23:50:00) CK MB [0.5-3.6 ng/mL] 4.4 ng/mL 4.5 ng/mL 3.8 ng/mL *HI* *HI* *HI* (05/13/2011 14:22:00) (05/13/2011 08:54:00) (05/12/2011 23:50:00) CK MB Index [0.0-2.5] 3.0 *HI* (05/12/2011 23:50:00) Troponin-I [0.00-0.40 ng/mL] <0.02 ng/mL <0.02 ng/mL <0.02 ng/mL (05/13/2011 14:22:00) (05/13/2011 08:54:00) (05/12/2011 23:50:00) Hgb A1C 8.2 % 5 *NA* (05/14/2011 04:02:00) Iron [45-160 ug/dl] 26 ug/dl *LOW* (05/13/2011 08:54:00) Ferritin Lvl [22-275 ng/mL] 328 ng/mL *HI* (05/13/2011 08:54:00) % Satur Fe [12-57 %] 11 % *LOW* (05/13/2011 08:54:00) UIBC [110-370 ug/dl] 204 ug/dl (05/13/2011 08:54:00) TIBC [228-428 ug/dl] 230 ug/dl (05/13/2011 08:54:00) T3 Uptake [31-39 %] 37 % (05/14/2011 04:02:00) T4 [4.7-13.3 ug/dl] 10.6 ug/dl (05/14/2011 04:02:00) FTI 3.9 *NA* (05/14/2011 04:02:00) TSH [0.360-3.740 uIU/mL] 1.500 uIU/mL (05/14/2011 04:02:00) 4Interpretive Data: Adult reference range values reflect the clinical guidelinesof the [place] [employer].5Interpretive Data: HbA1C% eAG(mg/dL) Interpretation 6.0 126Very good control 6.5 140 Very good control 7.0 154 Good Control 7.5 169 Good Control 8.0 183 Marginal Control, take action to lower 8.5 197 Marginal Control, take action to lower 9.0 212 Poor Control, take action to lower 9.5 226 Poor Control, takeaction to lower10.0 240 Poor Control, take action to lowerHEMATOLOGY Most recent to oldest [Reference 1 2 3 Range]: WBC [3.7-10.4 K/CMM] 11.0 K/CMM *HI* (05/12/2011 23:50:00) RBC [4.70-6.10 M/CMM] 3.37 M/CMM *LOW* (05/12/2011 23:50:00) Hgb [14.0-18.0 g/dL] 9.0 g/dL 8.8 g/dL *LOW* *LOW* (05/14/2011 16:27:00) (05/12/2011 23:50:00) Hct [42.0-54.0 %] 27.7 % 27.0 % *LOW* *LOW* (05/14/2011 16:27:00) (05/12/2011 23:50:00) MCV [80.0-94.0 fL] 80.2 fL (05/12/2011 23:50:00) MCH [27.0-31.0 pg] 26.2 pg *LOW* (05/12/2011 23:50:00) MCHC [32.0-36.0 g/dL] 32.7 g/dL (05/12/2011 23:50:00) RDW [11.5-14.5 %] 18.4 % *HI* (05/12/2011 23:50:00) Platelet [133-450 K/CMM] 296 K/CMM (05/12/2011 23:50:00) MPV [7.4-10.4 fL] 7.0 fL *LOW* (05/12/2011 23:50:00) Segs [45.0-75.0 %] 77.5 % *HI* (05/12/2011 23:50:00) Lymphocytes [20.0-40.0 %] 15.3 % *LOW* (05/12/2011 23:50:00) Monocytes [2.0-12.0 %] 5.1 % (05/12/2011 23:50:00) Eosinophils [0.0-4.0 %] 1.7 % (05/12/2011 23:50:00) Basophils [0.0-1.0 %] 0.4 % (05/12/2011 23:50:00) Segs-Bands # [1.5-8.1 K/CMM] 8.5 K/CMM *HI* (05/12/2011 23:50:00) Lymphocytes # [1.0-5.5 K/CMM] 1.7 K/CMM (05/12/2011 23:50:00) Monocytes # [0.0-0.8 K/CMM] 0.6 K/CMM (05/12/2011 23:50:00) Eosinophils # [0.0-0.5 K/CMM] 0.2 K/CMM (05/12/2011 23:50:00) Basophils # [0.0-0.2 K/CMM] 0.0 K/CMM (05/12/2011 23:50:00) Retic Auto [0.5-1.5 %] 1.5 % (05/13/2011 08:54:00) PT [12.0-14.7 seconds] 16.0 seconds *HI* (05/12/2011 23:50:00) INR [0.85-1.17] 1.28 6 *HI* (05/12/2011 23:50:00) 6Interpretive Data: RECOMMENDED RANGES FOR PROTIME INR: 2.0-3.0 for most medical and surgical thromboembolic states. 2.5-3.5 for artificial heart valves and recurrent embolism.INR SHOULD BE USED ONLY FOR PATIENTS ON STABLE ANTICOAGULANT THERAPY.
--- OUTSIDE RECORDS SUMMARY | 2018-07-23 06:33 | XMS REPORT | CCD ---
:1950 Author Organization [facility] Care Team Providers Name Role Phone NONE, None Primary Care Provider Unavailable Priyanka King Referring Provider Allergies, Adverse Reactions, Alerts Substance Reaction Status penicillins Active Problem List Condition Effective Dates Status CABG - Coronary artery bypass graft Active Diabetes mellitus Active Empyema Active Gastric reflux Active Hepatitis Active Hyperlipidemia Active Hypertension Active Maintenance of chest tube Active Multiple ulcers Active Pneumonia Active Medications Medication Instructions Start Date End Date Status influenza virus vaccine, 0.5 ml, Route: IM, Drug 05/14/2011 05/14/2011 Completed inactivated Form: SUSP, Start date: 05/14/11 9:00:00, Stop date: 05/14/11 9:00:00 Fish Oil Ultra 1000 mg 1,000 mg, 1 cap, PO, Daily, 10/03/2011 Ordered oral capsule Substitution Allowed, CAP Immunizations Vaccine Date Status influenza virus vaccine, inactivated 05/14/2011 Auth (Verified) Vital Signs Most recent to oldest [Reference Range]: 1 Height 165.10 cm (10/04/2011 07:40:00) Weight 90.909 kg (10/04/2011 07:40:00)
--- OUTSIDE RECORDS SUMMARY | 2018-07-23 06:33 | XMS REPORT | CCD ---
:1950 Author Organization [facility] Care Team Providers Name Role Phone NONE, None Primary Care Provider Unavailable Albert William Referring Provider Allergies, Adverse Reactions, Alerts Substance [...] date: 05/14/11 9:00:00, Stop date: 05/14/11 9:00:00 Immunizations Vaccine Date Status influenza virus vaccine, inactivated 05/14/2011 Auth (Verified)
--- OUTSIDE RECORDS SUMMARY | 2018-07-23 06:33 | XMS REPORT | CCD ---
:1950 Author Organization [facility] Care Team Providers Name Role Phone NONE, [...] Medication Instructions Start Date End Date Status vancomycin 1.5 gm, 500 mL, Route: 07/18/2011 07/24/2011 Discontinued IV, Drug form: SOLN, [id number], Start date: 07/18/11 18:00:00, Duration: 30 day, Stop date: 08/17/11 10:00:00 Lasix 20 mg, 2 mL, Route: IVP, 07/31/2011 07/31/2011 Completed Drug form: INJ, ONCE, Start date: 07/31/11 12:31:00, Stop date: 07/31/11 12:31:00 Protonix 40 mg, 1 tab, Route: PO, 07/19/2011 08/02/2011 Discontinued Drug form: ECTAB, Before Dinner, Start date: 07/19/11 16:30:00, Duration: 30 day, Stop date: 08/17/11 16:30:00 Levemir 10 unit, 0.1 mL, Route: 07/22/2011 08/02/2011 Discontinued SUB-Q, Drug form: INJ, Daily, Start date: 07/22/11 12:00:00, Duration: 30 day, Stop date: 08/21/11 9:00:00 furosemide 80 mg, 2 tab, Route: PO, 07/19/2011 07/19/2011 Discontinued Drug form: TAB, Q12H, Start date: 07/19/11 21:00:00, Duration: 30 day, Stop date: 08/18/11 9:00:00 ferrous sulfate 60 mg, 1 mL, Route: PO, 07/20/2011 08/02/2011 Discontinued Drug form: LIQ, Daily, Start date: 07/20/11 9:00:00, Duration: 30 day, Stop date: 08/18/11 9:00:00 Saline Flush 0.9% 5 ml, Route: IVP, Drug 07/18/2011 07/19/2011 Completed Form: INJ, PRN, PRN Line Flush, Start date: 07/18/11 11:09:00, Duration: 24 hr, Stop date: 07/19/11 11:08:00 aspirin 81 mg tablet, 81 mg, 1 tab, Route: 07/30/2011 08/02/2011 Discontinued chewable CHEW, Drug form: CHEWTAB, Daily, Start date: 07/30/11 9:00:00, Duration: 30 day, Stop date: 08/28/11 9:00:00 NovoLog FlexPen 4 unit, 0.04 mL, Route: 07/19/2011 07/22/2011 Discontinued SUB-Q, Drug form: SOLN, Bedtime, PRN Blood Glucose Results, Start date: 07/19/11 22:05:00, Duration: 30 day, Stop date: 08/18/11 22:04:00 NovoLog FlexPen 3 unit, 0.03 mL, Route: 07/19/2011 07/22/2011 Discontinued SUB-Q, Drug form: SOLN, Bedtime, PRN Blood Glucose Results, Start date: 07/19/11 22:05:00, Duration: 30 day, Stop date: 08/18/11 22:04:00 NovoLog FlexPen 2 unit, 0.02 mL, Route: 07/19/2011 07/22/2011 Discontinued SUB-Q, Drug form: SOLN, Bedtime, PRN Blood Glucose Results, Start date: 07/19/11 22:05:00, Duration: 30 day, Stop date: 08/18/11 22:04:00 NovoLog FlexPen 1 unit, 0.01 mL, Route: 07/19/2011 07/22/2011 Discontinued SUB-Q, Drug form: SOLN, Bedtime, PRN Blood Glucose Results, Start date: 07/19/11 22:05:00, Duration: 30 day, Stop date: 08/18/11 22:04:00 Lasix 40 mg, 2 tab, Route: PO, 07/19/2011 08/01/2011 Discontinued Drug form: TAB, Q12H, Start date: 07/19/11 21:00:00, Stop date: 08/18/11 9:00:00 Lasix 40 mg, 4 mL, Route: IV, 08/01/2011 08/02/2011 Discontinued Drug form: INJ, [id number], Start date: 08/01/11 16:01:00, Duration: 30 day, Stop date: 08/31/11 6:00:00 influenza virus vaccine, 0.5 ml, Route: IM, Drug 05/14/2011 05/14/2011 Completed inactivated Form: SUSP, Start date: 05/14/11 9:00:00, Stop date: 05/14/11 9:00:00 Definity 1.65 mg, 1.5 mL, Route: 07/25/2011 08/02/2011 Discontinued IV, Drug form: SUSP, ONCALL, Start date: 07/25/11 12:00:00, Duration: 1 doses or times, Stop date: 07/26/11 0:00:00 NovoLog FlexPen 12 unit, 0.12 mL, Route: 07/19/2011 07/22/2011 Discontinued SUB-Q, Drug form: SOLN, Sliding Scale, PRN Blood Glucose Results, Start date: 07/19/11 22:04:00, Duration: 30 day, Stop date: 08/18/11 22:03:00 NovoLog FlexPen 10 unit, 0.1 mL, Route: 07/19/2011 07/22/2011 Discontinued SUB-Q, Drug form: SOLN, Sliding Scale, PRN Blood Glucose Results, Start date: 07/19/11 22:04:00, Duration: 30 day, Stop date: 08/18/11 22:03:00 NovoLog FlexPen 6 unit, 0.06 mL, Route: 07/19/2011 07/22/2011 Discontinued SUB-Q, Drug form: SOLN, Sliding Scale, PRN Blood Glucose Results, Start date: 07/19/11 22:04:00, Duration: 30 day, Stop date: 08/18/11 22:03:00 NovoLog FlexPen 8 unit, 0.08 mL, Route: 07/19/2011 07/22/2011 Discontinued SUB-Q, Drug form: SOLN, Sliding Scale, PRN Blood Glucose Results, Start date: 07/19/11 22:04:00, Duration: 30 day, Stop date: 08/18/11 22:03:00 NovoLog FlexPen 4 unit, 0.04 mL, Route: 07/19/2011 07/22/2011 Discontinued SUB-Q, Drug form: SOLN, Sliding Scale, PRN Blood Glucose Results, Start date: 07/19/11 22:04:00, Duration: 30 day, Stop date: 08/18/11 22:03:00 azithromycin 500 mg, 250 mL, Route: 07/18/2011 07/18/2011 Completed IVPB, Drug form: PDR/INJ, ONCE, Priority: STAT, Start date: 07/18/11 12:22:00, Stop date: 07/18/11 12:22:00 Rocephin 1 g/ NS (NaCl 1 gm, Route: IVPB, ONCE, 07/18/2011 07/18/2011 Completed 0.9%) 50 mL IV solution Priority: STAT, Start date: 07/18/11 12:21:00, Stop date: 07/18/11 12:21:00 NovoLog FlexPen 2 unit, 0.02 mL, Route: 07/19/2011 07/22/2011 Discontinued SUB-Q, Drug form: SOLN, Sliding Scale, PRN Blood Glucose Results, Start date: 07/19/11 22:04:00, Duration: 30 day, Stop date: 08/18/11 22:03:00 NovoLog FlexPen 3 unit, 0.03 mL, Route: 07/22/2011 08/02/2011 Discontinued SUB-Q, Drug form: SOLN, Sliding Scale, PRN Blood Glucose Results, Start date: 07/22/11 11:57:00, Duration: 30 day, Stop date: 08/21/11 11:56:00 Dextrose 50% Syringe 12.5 gm, 25 mL, Route: 07/18/2011 07/22/2011 Discontinued IVP, Drug Form: INJ, PRN, PRN Blood Glucose Results, Start date: 07/18/11 15:05:00, Duration: 30 day, Stop date: 08/17/11 15:04:00 glucagon 1 mg, Route: IM, Drug 07/18/2011 07/22/2011 Discontinued form: PDR/INJ, PRN, PRN Blood Glucose Results, Start date: 07/18/11 15:05:00, Duration: 30 day, Stop date: 08/17/11 15:04:00 Dextrose 50% Syringe 25 gm, 50 mL, Route: 07/18/2011 07/22/2011 Discontinued IVP, Drug Form: INJ, PRN, PRN Blood Glucose Results, Start date: 07/18/11 15:05:00, Duration: 30 day, Stop date: 08/17/11 15:04:00 insulin aspart 1 unit, 0.01 mL, Route: 07/18/2011 07/19/2011 Discontinued SUB-Q, Drug form: SOLN, TID-Before Meals, PRN Blood Glucose Results, Start date: 07/18/11 15:05:00, Duration: 30 day, Stop date: 08/17/11 15:04:00 insulin aspart 2 unit, 0.02 mL, Route: 07/18/2011 07/19/2011 Discontinued SUB-Q, Drug form: SOLN, TID-Before Meals, PRN Blood Glucose Results, Start date: 07/18/11 15:05:00, Duration: 30 day, Stop date: 08/17/11 15:04:00 insulin aspart 5 unit, 0.05 mL, Route: 07/18/2011 07/19/2011 Discontinued SUB-Q, Drug form: SOLN, TID-Before Meals, PRN Blood Glucose Results, Start date: 07/18/11 15:05:00, Duration: 30 day, Stop date: 08/17/11 15:04:00 insulin aspart 3 unit, 0.03 mL, Route: 07/18/2011 07/19/2011 Discontinued SUB-Q, Drug form: SOLN, TID-Before Meals, PRN Blood Glucose Results, Start date: 07/18/11 15:05:00, Duration: 30 day, Stop date: 08/17/11 15:04:00 insulin aspart 4 unit, 0.04 mL, Route: 07/18/2011 07/19/2011 Discontinued SUB-Q, Drug form: SOLN, TID-Before Meals, PRN Blood Glucose Results, Start date: 07/18/11 15:05:00, Duration: 30 day, Stop date: 08/17/11 15:04:00 vancomycin 1.5 gm, 500 mL, Route: 07/24/2011 08/02/2011 Discontinued IV, Drug form: SOLN, Q16H, Start date: 07/24/11 10:00:00, Duration: 30 day, Stop date: 08/22/11 5:00:00 lisinopril 10 mg, 1 tab, Route: PO, 07/31/2011 08/02/2011 Discontinued Drug form: TAB, Daily, Priority: NOW, Start date: 07/31/11 16:17:00, Duration: 30 day, Stop date: 08/30/11 9:00:00 Sodium Chloride 0.9% 125 mL, Rate: 125 ml/hr, 07/18/2011 07/18/2011 Completed (Bolus) IV 125 mL Infuse over: 1 hr, Route: IV, Dosing Weight 87.273 kg, Total Volume: 125, Bolus Dose, Priority: STAT, Start date: 07/18/11 12:53:00, Duration: 1 doses or times, Stop date: 07/18/11 13:52:00 atropine 0.5 mg, 5 mL, Route: 07/27/2011 08/02/2011 Discontinued IVP, Drug form: INJ, PRN, PRN Bradycardia, Start date: 07/27/11 12:05:00, Duration: 30 day, Stop date: 08/26/11 12:04:00 nitroglycerin 0.4 mg 0.4 mg, 1 tab, Route: 07/27/2011 08/02/2011 Discontinued sublingual tablet SL, Drug form: TAB, Q5Min, PRN Chest Pain, Start date: 07/27/11 12:05:00, Duration: 30 day, Stop date: 08/26/11 12:04:00 meropenem 1 gm, Route: IVPB, 07/18/2011 08/02/2011 Discontinued [id number], Start date: 07/18/11 17:00:00, Duration: 30 day, Stop date: 08/17/11 9:00:00 acetaminophen-hydrocodone 1 tab, Route: PO, Drug 07/19/2011 08/02/2011 Discontinued 325 mg-5 mg oral tablet Form: TAB, Q4H, PRN Pain, Start date: 07/19/11 23:17:00, Duration: 30 day, Stop date: 08/18/11 23:16:00 DuoNeb inhalation solution 3 ml, Route: INHALATION, 07/19/2011 08/02/2011 Discontinued Drug Form: SOLN, RQID, Start date: 07/19/11 15:00:00, Duration: 30 day, Stop date: 08/18/11 11:00:00 Lovenox 30 mg, 0.3 mL, Route: 07/19/2011 08/02/2011 Discontinued SUB-Q, Drug form: INJ, [id number], Start date: 07/19/11 12:00:00, Duration: 30 day, Stop date: 08/19/11 12:00:00 Levemir FlexPen 20 unit, 0.2 mL, Route: 07/20/2011 08/02/2011 Discontinued SUB-Q, Drug form: INJ, Bedtime, Start date: 07/20/11 21:00:00, Stop date: 08/18/11 21:00:00 ferrous sulfate 65 mg, PO, Substitution 07/18/2011 Ordered Allowed, TAB carvedilol 25 mg, 2 tab, Route: PO, 07/19/2011 08/02/2011 Discontinued Drug form: TAB, Q12H, Start date: 07/19/11 21:00:00, Stop date: 08/18/11 9:00:00 Dextrose 50% in Water IV 50 mL, Route: IVP, Start 07/22/2011 08/02/2011 Discontinued date: 07/22/11 11:58:00, Duration: 30 day, Stop date: 08/21/11 11:57:00, PRN Blood Glucose Results glucagon 1 mg, Route: IM, Drug 07/22/2011 08/02/2011 Discontinued form: PDR/INJ, PRN, PRN Blood Glucose Results, Start date: 07/22/11 11:58:00, Duration: 30 day, Stop date: 08/21/11 11:57:00 NovoLog FlexPen 18 unit, 0.18 mL, Route: 07/22/2011 08/02/2011 Discontinued SUB-Q, Drug form: SOLN, Sliding Scale, PRN Blood Glucose Results, Start date: 07/22/11 11:58:00, Duration: 30 day, Stop date: 08/21/11 11:57:00 NovoLog FlexPen 15 unit, 0.15 mL, Route: 07/22/2011 08/02/2011 Discontinued SUB-Q, Drug form: SOLN, Sliding Scale, PRN Blood Glucose Results, Start date: 07/22/11 11:58:00, Duration: 30 day, Stop date: 08/21/11 11:57:00 NovoLog FlexPen 12 unit, 0.12 mL, Route: 07/22/2011 08/02/2011 Discontinued SUB-Q, Drug form: SOLN, Sliding Scale, PRN Blood Glucose Results, Start date: 07/22/11 11:58:00, Duration: 30 day, Stop date: 08/21/11 11:57:00 NovoLog FlexPen 9 unit, 0.09 mL, Route: 07/22/2011 08/02/2011 Discontinued SUB-Q, Drug form: SOLN, Sliding Scale, PRN Blood Glucose Results, Start date: 07/22/11 11:58:00, Duration: 30 day, Stop date: 08/21/11 11:57:00 NovoLog FlexPen 6 unit, 0.06 mL, Route: 07/22/2011 08/02/2011 Discontinued SUB-Q, Drug form: SOLN, Sliding Scale, PRN Blood Glucose Results, Start date: 07/22/11 11:58:00, Duration: 30 day, Stop date: 08/21/11 11:57:00 Immunizations Vaccine Date Status influenza virus vaccine, inactivated 05/14/2011 Auth (Verified) Vital Signs Most recent to oldest 1 2 3 [Reference Range]: Height 182.88 cm (07/18/2011 10:35:00) Current Weight 87.000 kg (07/18/2011 16:48:00) Temperature Oral 97.6 DegF 98.1 DegF 98 DegF [96.4-99.1 DegF] (08/02/2011 12:00:00) (08/02/2011 08:00:00) (08/02/2011 05: 00:00) Systolic Blood Pressure 158 mmHg 147 mmHg 143 mmHg [90-140 mmHg] *HI* *HI* *HI* (08/02/2011 12:00:00) (08/02/2011 08:00:00) (08/02/2011 05:00:00) Diastolic Blood Pressure 90 mmHg 79 mmHg 87 mmHg [60-90 mmHg] (08/02/2011 12:00:00) (08/02/2011 08:00:00) (08/02/2011 05:00: 00) Respiratory Rate [14-20 16 BRMIN 17 BRMIN 16 BRMIN BRMIN] (08/02/2011 12:00:00) (08/02/2011 08:00:00) (08/02/2011 05:00:00) Peripheral Pulse Rate 76 bpm 72 bpm 51 bpm [60-100 bpm] (08/02/2011 12:00:00) (08/02/2011 08:00:00) *LOW* (08/02/2011 05:00:00) Weight 87.273 kg (07/18/2011 10:35:00) Results BODY FLUIDS Most recent to oldest [Reference Range]: 1 2 3 Glucose BF 5 mg/dL 1 *NA* (07/18/2011 14:45:00) Gluc BF Type Pleural *NA* (07/18/2011 14:45:00) Albumin BF 2.0 g/dL 2 *NA* (07/18/2011 14:45:00) Alb BF Type Pleural *NA* (07/18/2011 14:45:00) LDH BF Type Pleural (07/18/2011 14:45:00) LDH BF >6000 U/L 3 *NA* (07/18/2011 14:45:00) Color BF [Colorless] Red *ABN* (07/18/2011 14:45:00) Clarity BF [Clear] Bloody *ABN* (07/18/2011 14:45:00) RBC BF 137448 /mm3 4 *NA* (07/18/2011 14:45:00) WBC BF 184425 /mm3 5 *NA* (07/18/2011 14:45:00) Segs BF 96 % 6 *NA* (07/18/2011 14:45:00) Lymph BF 3 % *NA* (07/18/2011 14:45:00) Macrophage BF 1 % *NA* (07/18/2011 14:45:00) CellCnt BF Type Pleural (07/18/2011 14:45:00) 1Interpretive Data: No established reference ranges.2Interpretive Data: No established reference ranges.3Interpretive Data: No established reference ranges.4Interpretive Data: No established reference ranges.5Interpretive Data: No established reference ranges.6Interpretive Data: No established reference ranges.BEDSIDE GLUCOSE TESTING Most recent to oldest 1 2 3 [Reference Range]: Gluc POC Lifscn [70-99 179 mg/dL 7 163 mg/dL 8 168 mg/dL 9 mg/dL] *HI* *HI* *HI* (08/02/2011 11:43:00) (08/02/2011 05:40:00) (08/01/2011 21:27:00) Comment1 Assess patient Assess patient Notify RN/MD *NA* *NA* *NA* (07/31/2011 15:44:00) (07/31/2011 11:50:00) (07/30/2011 21:14:00) Comment2 Notify RN/MD Notify RN/MD Notify RN/MD *NA* *NA* *NA* (07/31/2011 15:44:00) (07/31/2011 11:50:00) (07/30/2011 15:18:00) 7Interpretive Data: Upper Reportable Limit: 200 mg/dL.8Interpretive Data: Upper Reportable Limit: 200 mg/dL.9Interpretive Data: Upper Reportable Limit: 200 mg/dL.CHEMISTRY Most recent to oldest 1 2 3 [Reference Range]: Sodium Lvl [135-145 mEq/L] 141 mEq/L 142 mEq/L 143 mEq/L (08/02/2011 05:45:00) (08/01/2011 06:04:00) (07/29/2011 06:06:00) Potassium Lvl [3.5-5.1 3.7 mEq/L 3.9 mEq/L 3.5 mEq/L mEq/L] (08/02/2011 05:45:00) (08/01/2011 06:04:00) (07/29/2011 06:06:00) Chloride Lvl [95-109 mEq/L] 104 mEq/L 104 mEq/L 103 mEq/L (08/02/2011 05:45:00) (08/01/2011 06:04:00) (07/29/2011 06:06:00) CO2 [24-32 mEq/L] 29 mEq/L 29 mEq/L 31 mEq/L (08/02/2011 05:45:00) (08/01/2011 06:04:00) (07/29/2011 06:06:00) AGAP [10.0-20.0 mEq/L] 11.7 mEq/L 12.9 mEq/L 12.5 mEq/L (08/02/2011 05:45:00) (08/01/2011 06:04:00) (07/29/2011 06:06:00) Creatinine Lvl [0.5-1.4 1.2 mg/dL 1.0 mg/dL 1.2 mg/dL mg/dL] (08/02/2011 05:45:00) (08/01/2011 06:04:00) (07/29/2011 06:06:00) BUN [7-22 mg/dL] 18 mg/dL 16 mg/dL 15 mg/dL (08/02/2011 05:45:00) (08/01/2011 06:04:00) (07/29/2011 06:06:00) B/C Ratio [6-25] 26 *HI* (07/18/2011 11:00:00) Glucose Lvl [70-99 mg/dL] 145 mg/dL 10 128 mg/dL 11 141 mg/dL 12 *HI* *HI* *HI* (08/02/2011 05:45:00) (08/01/2011 06:04:00) (07/29/2011 06:06:00) Total Protein [6.4-8.4 9.1 g/dL g/dL] *HI* (07/18/2011 11:00:00) Albumin Lvl [3.5-5.0 g/dL] 3.3 g/dL *LOW* (07/18/2011 11:00:00) Globulin [2.0-4.0 g/dL] 5.8 g/dL *HI* (07/18/2011 11:00:00) A/G Ratio [0.7-1.6] 0.6 *LOW* (07/18/2011 11:00:00) Calcium Lvl [8.5-10.5 9.0 mg/dL 8.9 mg/dL 8.7 mg/dL mg/dL] (08/02/2011 05:45:00) (08/01/2011 06:04:00) (07/29/2011 06:06:00) ALT [0-65 U/L] 7 U/L (07/18/2011 11:00:00) AST [0-37 U/L] 5 U/L (07/18/2011 11:00:00) Alk Phos [39-136 U/L] 57 U/L (07/18/2011 11:00:00) Bili Total [0.2-1.3 mg/dL] 0.8 mg/dL (07/18/2011 11:00:00) Lactic Acid Lvl [0.5-2.2 1.4 mMol/L mMol/L] (07/18/2011 12:36:00) Total CK [12-191 U/L] 79 U/L (07/18/2011 11:00:00) CK MB [0.5-3.6 ng/mL] 3.2 ng/mL (07/18/2011 11:00:00) CK MB Index [0.0-2.5] 4.1 *HI* (07/18/2011 11:00:00) Troponin-I [0.00-0.40 <0.02 ng/mL ng/mL] (07/18/2011 11:00:00) BNP [<=100 pg/mL] 257 pg/mL 13 *HI* (07/18/2011 11:00:00) Hgb A1C 9.2 % 14 *NA* (07/21/2011 06:56:00) Vanco Tr TND N/A @6 *NA* *NA* (07/24/2011 06:18:00) (07/19/2011 18:50:00) Vanco Pk TLD 2300 *NA* (07/20/2011 00:38:00) Vanco Tr 27.4 ug/ml 15 20.6 ug/ml 16 *NA* *NA* (07/24/2011 06:18:00) (07/19/2011 18:50:00) Vanco Pk 34.2 ug/ml 17 *NA* (07/20/2011 00:38:00) 10Interpretive Data: Adult reference range values reflect the clinical guidelinesof the [place] [employer].11Interpretive Data: Adult reference range values reflect the clinical guidelinesof the [place] [employer].12Interpretive Data: Adult reference range values reflect the clinical guidelinesof the [place] [employer].13Interpretive Data: Elevated results are in line with increasing severity of congestive heart failure. Minor elevations between 100 and 300 may be seen with Myocardial Ischemia, Sodium retaining drugs, and compensated/treated heart failure.14Interpretive Data: HbA1C% eAG(mg/dL) Interpretation 6.0 126Very good control 6.5 140 Very good control 7.0 154 Good Control 7.5 169 Good Control 8.0 183 Marginal Control, take action to lower 8.5 197 Marginal Control, take action to lower 9.0 212 Poor Control, take action to lower 9.5 226 Poor Control, takeaction to lower10.0 240 Poor Control, take action to [id number] Data: Therapeutic Range: Trough: 10 - 20 ug /mL Peak: 20 - 40 ug/mL Potential Toxicity: >80 ug/ [id number] Data: Therapeutic Range: Trough: 10 - 20 ug/ mL Peak: 20 - 40 ug/mL Potential Toxicity: >80 ug/ [id number] Data: Therapeutic Range: Trough: 10 - 20 ug/ mL Peak: 20 - 40 ug/mL Potential Toxicity: >80 ug/ mLHEMATOLOGY Most recent to oldest 1 2 3 [Reference Range]: WBC [3.7-10.4 K/CMM] 7.5 K/CMM 8.9 K/CMM 8.4 K/CMM (07/26/2011 05:51:00) (07/24/2011 06:18:00) (07/22/2011 05:55:00) RBC [4.70-6.10 M/CMM] 3.80 M/CMM 3.69 M/CMM 3.88 M/CMM *LOW* *LOW* *LOW* (07/26/2011 05:51:00) (07/24/2011 06:18:00) (07/22/2011 05:55:00) Hgb [14.0-18.0 g/dL] 10.5 g/dL 10.3 g/dL 10.7 g/dL *LOW* *LOW* *LOW* (07/26/2011 05:51:00) (07/24/2011 06:18:00) (07/22/2011 05:55:00) Hct [42.0-54.0 %] 31.4 % 30.5 % 32.2 % *LOW* *LOW* *LOW* (07/26/2011 05:51:00) (07/24/2011 06:18:00) (07/22/2011 05:55:00) MCV [80.0-94.0 fL] 82.6 fL 82.7 fL 83.0 fL (07/26/2011 05:51:00) (07/24/2011 06:18:00) (07/22/2011 05:55:00) MCH [27.0-31.0 pg] 27.7 pg 27.9 pg 27.5 pg (07/26/2011 05:51:00) (07/24/2011 06:18:00) (07/22/2011 05:55:00) MCHC [32.0-36.0 g/dL] 33.5 g/dL 33.8 g/dL 33.2 g/dL (07/26/2011 05:51:00) (07/24/2011 06:18:00) (07/22/2011 05:55:00) RDW [11.5-14.5 %] 18.0 % 17.2 % 17.5 % *HI* *HI* *HI* (07/26/2011 05:51:00) (07/24/2011 06:18:00) (07/22/2011 05:55:00) Platelet [133-450 K/CMM] 259 K/CMM 254 K/CMM 265 K/CMM (07/26/2011 05:51:00) (07/24/2011 06:18:00) (07/22/2011 05:55:00) MPV [7.4-10.4 fL] 6.6 fL 6.3 fL 6.7 fL *LOW* *LOW* *LOW* (07/26/2011 05:51:00) (07/24/2011 06:18:00) (07/22/2011 05:55:00) Segs [45.0-75.0 %] 59.5 % 64.4 % 60.0 % (07/26/2011 05:51:00) (07/24/2011 06:18:00) (07/22/2011 05:55:00) Lymphocytes [20.0-40.0 %] 28.7 % 23.4 % 28.7 % (07/26/2011 05:51:00) (07/24/2011 06:18:00) (07/22/2011 05:55:00) Monocytes [2.0-12.0 %] 7.6 % 7.8 % 6.9 % (07/26/2011 05:51:00) (07/24/2011 06:18:00) (07/22/2011 05:55:00) Eosinophils [0.0-4.0 %] 3.3 % 3.7 % 3.9 % (07/26/2011 05:51:00) (07/24/2011 06:18:00) (07/22/2011 05:55:00) Basophils [0.0-1.0 %] 0.9 % 0.7 % 0.5 % (07/26/2011 05:51:00) (07/24/2011 06:18:00) (07/22/2011 05:55:00) Segs-Bands # [1.5-8.1 4.4 K/CMM 5.7 K/CMM 5.0 K/CMM K/CMM] (07/26/2011 05:51:00) (07/24/2011 06:18:00) (07/22/2011 05:55:00) Lymphocytes # [1.0-5.5 2.1 K/CMM 2.1 K/CMM 2.4 K/CMM K/CMM] (07/26/2011 05:51:00) (07/24/2011 06:18:00) (07/22/2011 05:55:00) Monocytes # [0.0-0.8 K/CMM] 0.6 K/CMM 0.7 K/CMM 0.6 K/CMM (07/26/2011 05:51:00) (07/24/2011 06:18:00) (07/22/2011 05:55:00) Eosinophils # [0.0-0.5 0.2 K/CMM 0.3 K/CMM 0.3 K/CMM K/CMM] (07/26/2011 05:51:00) (07/24/2011 06:18:00) (07/22/2011 05:55:00) Basophils # [0.0-0.2 K/CMM] 0.1 K/CMM 0.1 K/CMM 0.0 K/CMM (07/26/2011 05:51:00) (07/24/2011 06:18:00) (07/22/2011 05:55:00) PT [12.0-14.7 seconds] 15.4 seconds *HI* (07/18/2011 17:56:00) INR [0.85-1.17] 1.22 18 *HI* (07/18/2011 17:56:00) PTT [22.9-35.8 seconds] 33.9 seconds 19 (07/18/2011 17:56:00) 18Interpretive Data: RECOMMENDED RANGES FOR PROTIME INR: 2.0-3.0 for most medical and surgical thromboembolic states. 2.5-3.5 for artificial heart valves and recurrent embolism.INR SHOULD BE USED ONLY FOR PATIENTS ON STABLE ANTICOAGULANT THERAPY.19Interpretive Data: Heparin Therapeutic Range: 57 - 92 SecondsIMMUNOLOGY Most recent to oldest [Reference Range]: 1 2 3 HIV 1/2 Ab [Negative] Negative *NA* (07/18/2011 16:43:00) Quantiferon - TB Gold NEGATIVE *NA* (07/18/2011 16:43:00) NIL 0.04 *NA* (07/18/2011 16:43:00) Mitogen - NIL >10.00 *NA* (07/18/2011 16:43:00) TB - NIL 0.01 *NA* (07/18/2011 16:43:00) Microbiology Reports PROCEDURE:Culture: Aspirate/Body Fluid/Tissue STATUS: Auth (Verified) BODY SITE: COLLECTED DATE/TIME: 07/18/2011 14:45:00 SOURCE: Pleural Fluid FREE TEXT SOURCE: FINAL REPORTS Final ReportNo GrowthPRELIMINARY REPORTS Preliminary [id number] Hour Report - No Growth, Holding Preliminary ReportNo Growth; Holding Preliminary [id number] Hour Report - No Growth, HoldingSTAIN REPORTS Stain ReportModerate WBC's No Organisms Seen PROCEDURE:Culture: Fungal w/Smear STATUS: In Progress BODY SITE: COLLECTED DATE/TIME: 07/18/2011 14:45:00 SOURCE: Pleural Fluid FREE TEXT SOURCE: PRELIMINARY REPORTS Preliminary ReportNo Growth After 2 Weeks Incubation. Culture Held 4 Weeks Preliminary ReportCulture In Progress STAIN REPORTS Stain ReportNo Fungal Elements Seen Testing Performed At : [facility], [place], [place] PROCEDURE:Culture: Blood STATUS: Auth (Verified) BODY SITE: Arm R COLLECTED DATE/TIME: 07/18/2011 12:39:00 SOURCE: Blood FREE TEXT SOURCE: FINAL REPORTS Final ReportNo Growth At 5 DaysPRELIMINARY REPORTS* Preliminary ReportNo Growth At 1 Day Preliminary ReportNo Growth ; Holding Preliminary ReportNo Growth At 3 Days Preliminary ReportNo Growth At 4 Days Preliminary ReportNo Growth At 2 Days PROCEDURE:Culture: Blood STATUS: Auth (Verified) BODY SITE: Arm L COLLECTED DATE/TIME: 07/18/2011 12:36:00 SOURCE: Blood FREE TEXT SOURCE: FINAL REPORTS Final ReportNo Growth At 5 DaysPRELIMINARY REPORTS* Preliminary ReportNo Growth At 3 Days Preliminary ReportNo Growth At 2 Days Preliminary ReportNo Growth At 1 Day Preliminary ReportNo Growth At 4 Days Preliminary ReportNo Growth; Holding
--- OUTSIDE RECORDS SUMMARY | 2018-07-23 06:33 | XMS REPORT | CCD ---
:1950 Author Organization [facility] Care Team Providers Name Role Phone NONE, [...]
[2018-07-23] MEDS ORDERED: HEPA 1000U/500MLS 1,000 UNIT/500 ML BAG IV ONE ×2 (06:52→07:48)
[2018-07-23] MEDS ORDERED: NA CHLORIDE 0.9% 500 ML ONE (06:52)
[2018-07-23] MEDS ORDERED: LIDOCAINE 1% MPF 30 ML VIAL ONE (06:53)
[2018-07-23] MEDS ORDERED: MIDAZOLAM HCL 2 MG/2 ML INJ ONE ×3 (07:32→08:03)
[2018-07-23] MEDS ORDERED: ATROPINE SULF 1 MG/10 ML SYR IV ONE (07:32)
[2018-07-23] MEDS ORDERED: NA CHLORIDE 0.9% 0 ML IV ONE (07:32)
[2018-07-23] MEDS ORDERED: FENTANYL CITR 100 MCG/2 ML ONE (07:32)
[2018-07-23 10:31] VITALS: TEMP 97.4
[2018-07-23 10:32] VITALS: BP 129/72; O2SAT 95
--- NOTE | 2018-07-23 18:54 | OP ---
Surgeon: Drew Lind MD Choir Singer: Dulce Maria Hernández. Reason For Admission: Outpatient left heart catheterization, selective vein graft, angiogram, and se lective coronary artery angiogram, and a SUNG angiogram. Indication: CAD and positive stress test. Procedure In Detail: The patient was prepped and draped in the routine sterile fashion, given 4 mg o f Versed for sedation. A 6-[place] sheath introduced in the right common femoral artery. Angio-Seal was used to close the case. Angiography there was normal. Gregg catheter 6-[place] left and right were used to do the diagnostic catheterization. The patient was found to have a completely occluded RCA, LAD, and circumflex. He had a patent SUNG to the LAD, although the SUNG was connected very dist ally. He had a patent vein graft to the OM1 and OM2, which was a jump graft that was with some disea se, 30-40% stenosis in the graft. He had a completely occluded RCA, and he had a patent vein graft t o the RCA with about 30% stenosis in the body of the graft. No focal stenosis. The decision was to treat the patient medically. There were no complications. Blood Loss: 5 cc. Postoperative Diagnosis: Severe coronary artery disease. Plan: Medical therapy. Anesthesia: Total conscious sedation was 45 minutes. LUIS/LISBETH Voice ID: [id number] Report ID: [id number]
== END 2018-07-23 10:24 | disposition home or self-care (01) ==
LOC: CCL 06:16
DX: I25.10 Atherosclerotic heart disease of native coronary artery without angina pectoris (principal); E11.51 Type 2 diabetes mellitus with diabetic peripheral angiopathy without gangrene; I48.91 Unspecified atrial fibrillation; Z79.01 Long term (current) use of anticoagulants; Z95.1 Presence of aortocoronary bypass graft
CPT/HCPCS: 93005; 85025; 80048; 36415; 85610; 82962 ×2; 85730; 71046; 93454; C1893; C1760; J2250 ×2; J3010; J0583